=== PATIENT | male | born 1960 | race Caucasian/White ===

== ENCOUNTER 2016-09-19 18:01 | Inpatient (IN) | payer OTHER ==
[2016-09-19 19:09] VITALS: BMI 19.3
[2016-09-19 20:45] LABS: BASOPHIL 0.8 % (0-2.0); EOSINOPHIL 6.6 % (0-4.5); MCHC 31.5 g/dl (32.0-35.9); MEAN CELL VOLUME 95.2 fl (80-96); MEAN PLT VOLUME 8.1 fl (7.5-11.1); NEUTROPHILS 73.9 % (42.8-82.8); PLATELET COUNT 259 K/MM3 (134-434); RDW 14.6 % (11.9-15.9); WHITE BLOOD COUNT 13.9 K/mm3 (4.0-10.0)
--- NOTE | 2016-09-19 20:50 | PDOC ---
History of Present Illness - General History Source: Patient, Exercise Manager Used, Old Records Exam Limitations: No Limitations - History of Present Illness Initial Comments: 09/19/16 21:03 The patient is a 55 year old male, with a significant past medical history of ESRD on dialysis (M, W, F), HIV, anemia, GERD, HLD, paranoid schizophrenia, depression and anxiety, who presents to the emergency department with malfunctioning left upper extremity fistula. The patient was at dialysis today and was not able to receive dialysis due to a clot in the access port of the fistula. The patient's PMD sent the patient in to be admitted in order to repair the malfunctioning fistula. The patient has a history of left upper extremity fistula clotting, with the last case being on 09/30/15. The patient denies chest pain, shortness of breath, headache and dizziness. Denies fever, chills, nausea, vomit, diarrhea and constipation. Denies dysuria, frequency, urgency and hematuria. Allergies: Penicillin, shellfish Past surgical history: Left upper extremity fistula Social history: No alcohol, tobacco or drug use reported Surgeon: Dr. Brooks <Heath Plata - Last Filed: 09/19/16 23:47> - General History Source: Patient Exam Limitations: No Limitations <Gino Houston - Last Filed: 09/20/16 00:05> - General Chief Complaint: Dialysis Shunt Problem Stated Complaint: BACK PAIN Time Seen by Provider: 09/19/16 19:21 Past History <Heath Plata - Last Filed: 09/19/16 23:47> - Past Medical History Anemia: Yes Dialysis: Yes (M-W-F) GI Disorders: Yes (GERD) Hypercholesterolemia: Yes HIV: Yes Psychiatric Problems: Yes (paranoid schizophrenia, psychosis, depression, anxiety) Seizures: Yes (grand mal seizures) - Immunization History Immunization Up to Date: Yes - Psycho/Social/Smoking Cessation Hx Anxiety: No Suicidal Ideation: No Smoking Status: No Smoking History: Never smoked Have you smoked in the past 12 months: No Number of Cigarettes Smoked Daily: 0 Hx Alcohol Use: No Drug/Substance Use Hx: No Substance Use Type: None Hx Substance Use Treatment: No <Gino Houston - Last Filed: 09/20/16 00:05> - Past Medical History Allergies/Adverse Reactions: Allergies Allergy/AdvReac Type Severity Reaction Status Date / Time Penicillins Allergy Unknown Verified 09/19/16 19:09 shellfish derived Allergy Unknown Verified 09/19/16 19:09 Home Medications: Ambulatory Orders Amlodipine Besylate [Norvasc -] 10 mg PO DAILY 09/30/15 Ascorbic Acid [Vitamin C] 250 mg PO DAILY 09/30/15 Calcitriol 0.5 mcg PO DAILY 09/30/15 Cinacalcet HCl [Sensipar] 30 mg PO DAILY 09/30/15 Diazepam 10 mg PO DAILY 09/30/15 Docusate Sodium [Colace -] 200 mg PO HS 09/30/15 Fluoxetine HCl 10 mg PO DAILY 09/30/15 Gabapentin 300 mg PO TID 09/30/15 Iron Polysaccharide Complex [Ferrex 150] 150 mg PO DAILY 09/30/15 Lorazepam [Ativan] 2 mg PO HS 09/30/15 Metoprolol Succinate [Toprol XL -] 50 mg PO DAILY 09/30/15 Nut.tx,Impaired Renal Fxn,Whey [Renalcal] 800 ml PO TID 09/30/15 Quetiapine Fumarate [Seroquel] 100 mg PO DAILY 09/30/15 Sevelamer Carbonate [Renvela -] 1,600 mg PO BID 09/30/15 Aspirin [ASA -] 81 mg PO DAILY #30 tab.chew 10/02/15 Sodium Polystyrene Sulfonate [Kayexalate -] 30 gm PO DAILY #10 bottle 10/02/15 Review of Systems - Review of Systems Able to Perform ROS?: Yes Comments:: 09/19/16 21:04 GENERAL/CONSTITUTIONAL: No fever or chills. No weakness. HEAD, EYES, EARS, NOSE AND THROAT: No change in vision. No ear pain or discharge. No sore throat. CARDIOVASCULAR: No chest pain or shortness of breath RESPIRATORY: No cough, wheezing, or hemoptysis. GASTROINTESTINAL: No nausea, vomiting, diarrhea or constipation. GENITOURINARY: No dysuria, frequency, or change in urination. MUSCULOSKELETAL: No joint or muscle swelling or pain. No neck or back pain. SKIN: No rash NEUROLOGIC: No headache, vertigo, loss of consciousness, or change in strength/ sensation. ENDOCRINE: No increased thirst. No abnormal weight change HEMATOLOGIC/LYMPHATIC: No anemia, easy bleeding, or history of blood clots. ALLERGIC/IMMUNOLOGIC: No hives or skin allergy. <Heath Plata Taryn - Last Filed: 09/19/16 23:47> *Physical Exam - Vital Signs Last Vital Signs Temp Pulse Resp BP Pulse Ox 97.6 F 77 20 132/83 98 09/19/16 19:04 09/19/16 19:04 09/19/16 19:04 09/19/16 19:04 09/19/16 19:04 - Physical Exam Comments: 09/19/16 21:04 GENERAL: Awake, alert, and fully oriented, in no acute distress HEAD: No signs of trauma, normocephalic, atraumatic EYES: PERRLA, EOMI, sclera anicteric, conjunctiva clear ENT: Auricles normal inspection, hearing grossly normal, nares patent, oropharynx clear without exudates. Moist mucosa NECK: Normal ROM, supple, no lymphadenopathy, JVD, or masses LUNGS: No distress, speaks full sentences, clear to auscultation bilaterally HEART: Regular rate and rhythm, normal S1 and S2, no murmurs, rubs or gallops, peripheral pulses normal and equal bilaterally. ABDOMEN: Soft, nontender, normoactive bowel sounds. No guarding, no rebound. No masses EXTREMITIES: +Left upper extremity fistula with mild thrill. Normal inspection, Normal range of motion, no edema. No clubbing or cyanosis. NEUROLOGICAL: Cranial nerves II through XII grossly intact. Normal speech, normal gait, no focal sensorimotor deficits SKIN: Warm, Dry, normal turgor, no rashes or lesions noted. <TamekaAicha harrisaminta Centeno - Last Filed: 09/19/16 23:47> - Vital Signs Last Vital Signs Temp Pulse Resp BP Pulse Ox 97.6 F 77 20 132/83 98 09/19/16 19:04 09/19/16 19:04 09/19/16 19:04 09/19/16 19:04 09/19/16 19:04 <Gino Houston - Last Filed: 09/20/16 00:05> Heart Score/ECG Review #1 ECG reviewed & interpreted by me at: 22:30 09/20/16 00:04 NSR 82, no std/asmita, normal axis, normal intervals, QTC 408 msec. NO peaked t waves Or Widening of the QRS. <Gino Houston - Last Filed: 09/20/16 00:05> ED Treatment Course - LABORATORY CBC & Chemistry Diagram: 09/19/16 20:20 09/19/16 22:35 - ADDITIONAL ORDERS Additional order review: 09/19/16 20:20 RBC 3.95 L MCV 95.2 MCHC 31.5 L RDW 14.6 MPV 8.1 Neutrophils % 73.9 Lymphocytes % 8.3 D Monocytes % 10.4 H Eosinophils % 6.6 H Basophils % 0.8 - RADIOLOGY Radiograph Interpretation: 09/19/16 22:07 Chest X-Ray Reviewed by: Dr. Michael Crook Impression: Cardiomegaly with interval bilateral interstitial opacities. Rule put mild pulmonary venous congestion versus interstitial infiltrates. <Heath Plata - Last Filed: 09/19/16 23:47> - LABORATORY CBC & Chemistry Diagram: 09/19/16 20:20 09/19/16 22:35 - RADIOLOGY Radiology Studies Ordered: Category Date Time Status CHEST X-RAY PORTABLE* [RAD] Stat Radiology 09/19/16 19:53 Taken DUPLEX ART. UPPER LIMITED US [US] Stat Ultrasound 09/20/16 07:00 Ordered DUPLEX HEMODIALYSIS ACCESS [VASC] Stat Vascular 09/19/16 19:53 Ordered <Gino Houston - Last Filed: 09/20/16 00:05> Medical Decision Making - Medical Decision Making 09/19/16 20:49 A portion of this note was documented by scribe services under my direction. I have reviewed the details of the note, within reason, and agree with the documentation with the following case summary and management plan written by me. Patient treated in the ED. Nursing notes are reviewed and incorporated into the medical decision-making. Vital signs reviewed. Peripheral IV access obtained by the nurse, laboratory studies are drawn and sent, reviewed and interpreted by myself. Vital Signs Temp Pulse Resp BP Pulse Ox 97.6 F 77 20 132/83 98 09/19/16 19:04 09/19/16 19:04 09/19/16 19:04 09/19/16 19:04 09/19/16 19:04 55 year old fmale with hx anemia, dialysis (M, W, F), HIV, GERD, HLD, paranoid schizophrenia, depression, anxiety presents to the emergency department for left upper showing fistula workup. I had spoken to Dr. Fe Nunez. The patient was thought to have a clotted LUE fistula. 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 Nunez. Today, the dialysis center (followed by Dr. Courtney Colindres) had attempted to access the site , but was unable to do so. As per Dr. Nunez, states that the surgical PA will be able to see the patient tomorrow for access. Will obtain an ultrasound of the LUE fistula. The patient currently has no complaints at this time. Last dialysis 09/17. Will obtain labs and LUE fistula and admit the patient for further fistula management. 09/20/16 00:03 CBC, BMP 09/19/16 20:20 09/19/16 22:35 CMP Sodium 134 mmol/L (136-145) L 09/19/16 22:35 Potassium 5.4 mmol/L (3.5-5.1) H 09/19/16 22:35 Chloride 100 mmol/L (98-107) 09/19/16 22:35 Carbon Dioxide 23 mmol/L (21-32) 09/19/16 22:35 Anion Gap 11 (8-16) 09/19/16 22:35 BUN 79 mg/dL (7-18) H 09/19/16 22:35 Creatinine 10.3 mg/dL (0.7-1.3) H* 09/19/16 22:35 Creat Clearance w eGFR 5.30 (>60) 09/19/16 22:35 Random Glucose 75 mg/dL (74-106) D 09/19/16 22:35 Calcium 9.6 mg/dL (8.5-10.1) 09/19/16 22:35 Phosphorus 6.1 mg/dL (2.5-4.9) H 09/19/16 22:35 Magnesium 2.5 mg/dL (1.8-2.4) H D 09/19/16 22:35 Total Bilirubin 0.3 mg/dL (0.2-1.0) D 09/19/16 22:35 AST 12 U/L (15-37) L D 09/19/16 22:35 ALT 24 U/L (12-78) 09/19/16 22:35 Alkaline Phosphatase 113 U/L (45-117) 09/19/16 22:35 Total Protein 6.7 g/dl (6.4-8.2) 09/19/16 22:35 Albumin 3.7 g/dl (3.4-5.0) 09/19/16 22:[address] Quintana. She accepts the patient to med/surg admission. Case discussed in detail with admitting physician including history, physical exam and ancillary studies. Admitting physician has assumed care for the patient, will follow all pending diagnostics and will complete the evaluation and treatment. <Gino Houston - Last Filed: 09/20/16 00:05> *DC/Admit/Observation/Transfer - Attestations Scribe Attestion: 09/19/16 21:04 Documentation prepared by Heath Plata, acting as medical receptionist for Gino Houston MD. <Heath Plata - Last Filed: 09/19/16 23:47> - Discharge Dispostion Admit: Yes <Gino Houston - Last Filed: 09/20/16 00:05> Diagnosis at time of Disposition: Malfunction of arteriovenous dialysis fistula Qualifiers: Encounter type: initial encounter Qualified Code(s): T82.590A - Other mechanical complication of surgically created arteriovenous fistula, initial encounter - Discharge Dispostion Condition at time of disposition: Stable
[2016-09-19 21:03] LABS: INR 0.96 (0.82-1.09); PROTHROMBIN TIME (PATIENT) 10.5 SEC (9.98-11.88)
[2016-09-19 21:05] LABS: ACTIVATED PTT 46.4 SECONDS (26.9-34.4)
[2016-09-19 23:16] LABS: ALBUMIN 3.7 g/dl (3.4-5.0); BILIRUBIN,TOTAL 0.3 mg/dL (0.2-1.0); CALCIUM 9.6 mg/dL (8.5-10.1); MAGNESIUM 2.5 mg/dL (1.8-2.4); PHOSPHOROUS 6.1 mg/dL (2.5-4.9); TOT PROT 6.7 g/dl (6.4-8.2)
[2016-09-19 23:38] LABS: CREATININE 10.3 mg/dL (0.7-1.3)
--- NOTE | 2016-09-20 00:31 | HP ---
<Dusty Blanco - Last Filed: 09/20/16 01:42> CHIEF COMPLAINT: Malfunctioning left upper extremity fistula. PCP: Not on staff HISTORY OF PRESENT ILLNESS: The patient is a 55 year old male, with a significant past medical history of ESRD on HD (M, W, F), HIV, anemia, GERD, HLD, paranoid schizophrenia, depression and anxiety who presented to the ED with swelling of the left upper extremity AV fistula. He also reports nasal congestion and dry cough. The patient denies fever, chills, nausea, and diarrhea. ER course was notable for: (1) hyperkalemia 5.4 (2) mild hyponatremia 1.4 (3) mild leukocytosis 13.9 CXR mild congestion Recent Travel: No PAST MEDICAL HISTORY: ESRD on HD (M, W, F), HIV, anemia, GERD, HLD, paranoid schizophrenia, depression and anxiety. PAST SURGICAL HISTORY: AV Fistula Social History: Smoking: No Alcohol: No Drugs: No Family History: Non contributory Allergies Penicillins Allergy (Unknown, Verified 09/19/16 19:09) Shellfish derived Allergy (Unknown, Verified 09/19/16 19:09) HOME MEDICATIONS: Medication Instructions Recorded Amlodipine Besylate [Norvasc -] 10 mg PO DAILY 09/30/15 Ascorbic Acid [Vitamin C] 250 mg PO DAILY 09/30/15 Calcitriol 0.5 mcg PO DAILY 09/30/15 Cinacalcet HCl [Sensipar] 30 mg PO DAILY 09/30/15 Diazepam 10 mg PO DAILY 09/30/15 Docusate Sodium [Colace -] 200 mg PO HS 09/30/15 Fluoxetine HCl 10 mg PO DAILY 09/30/15 Gabapentin 300 mg PO TID 09/30/15 Iron Polysaccharide Complex 150 mg PO DAILY 09/30/15 [Ferrex 150] Lorazepam [Ativan] 2 mg PO HS 09/30/15 Metoprolol Succinate [Toprol XL -] 50 mg PO DAILY 09/30/15 Nut.tx,Impaired Renal Fxn,Whey 800 ml PO TID 09/30/15 [Renalcal] Quetiapine Fumarate [Seroquel] 100 mg PO DAILY 09/30/15 Sevelamer Carbonate [Renvela -] 1,600 mg PO BID 09/30/15 Aspirin [ASA -] 81 mg PO DAILY #30 tab.chew 10/02/15 Sodium Polystyrene Sulfonate 30 gm PO DAILY #10 bottle 10/02/15 [Kayexalate -] REVIEW OF SYSTEMS CONSTITUTIONAL: Absent: fever, chills, diaphoresis, generalized weakness, malaise, loss of appetite, weight change HEENT: Present: Nasal Congestion 'Absent: rhinorrhea, throat pain, throat swelling, difficulty swallowing, mouth swelling, ear pain, eye pain, visual changes CARDIOVASCULAR: Absent: chest pain, syncope, palpitations, irregular heart rate, lightheadedness , peripheral edema RESPIRATORY: Present: Cough Absent: shortness of breath, dyspnea with exertion, orthopnea, wheezing, stridor , hemoptysis GASTROINTESTINAL: Absent: abdominal pain, abdominal distension, nausea, vomiting, diarrhea, constipation, melena, hematochezia GENITOURINARY: Absent: dysuria, frequency, urgency, hesitancy, hematuria, flank pain, genital pain MUSCULOSKELETAL: Absent: myalgia, arthralgia, joint swelling, back pain, neck pain SKIN: Absent: rash, itching, pallor HEMATOLOGIC/IMMUNOLOGIC: Absent: easy bleeding, easy bruising, lymphadenopathy, frequent infections ENDOCRINE: Absent: unexplained weight gain, unexplained weight loss, heat intolerance, cold intolerance NEUROLOGIC: Absent: headache, focal weakness or paresthesias, dizziness, unsteady gait, seizure, mental status changes, bladder or bowel incontinence PSYCHIATRIC: Absent: suicidal or homicidal ideation, hallucinations. PHYSICAL EXAMINATION GENERAL: Well nourished man resting in bed, awake, alert, and fully oriented, in no acute distress. HEAD: Normal with no signs of trauma. EYES: Pupils equal, round and reactive to light, extraocular movements intact, sclera anicteric, conjunctiva clear. No lid lag. EARS, NOSE, THROAT: Ears normal, nares patent, oropharynx clear without exudates. Moist mucous membranes. NECK: Normal range of motion, supple without lymphadenopathy, JVD, or masses. LUNGS: Breath sounds equal, clear to auscultation bilaterally. No wheezes, and no crackles. No accessory muscle use. HEART: Regular rate and rhythm, normal S1 and S2 without murmur, rub or gallop. ABDOMEN: Soft, nontender, not distended, normoactive bowel sounds, no guarding, no rebound, no masses. No hepatomegaly or splenomegaly. MUSCULOSKELETAL: Normal range of motion at all joints. No bony deformities or tenderness. No CVA tenderness. UPPER EXTREMITIES: 2+ pulses, warm, well-perfused. No cyanosis. No clubbing. Cap refill <2 seconds. No peripheral edema. LOWER EXTREMITIES: 2+ pulses, warm, well-perfused. No calf tenderness. No peripheral edema. NEUROLOGICAL: Cranial nerves II-XII intact. Normal speech. Normal gait. PSYCHIATRIC: Cooperative. Good eye contact. Appropriate mood and affect. SKIN: Warm, dry, normal turgor, no rashes or lesions noted. Imaging: CXR Impression: questionable congestion possible infiltrates ASSESSMENT/PLAN: Patient is a 55 year old male with past medical history noted above presents with blocked AV fistula. 1. Clot in Av fistula -To be seen by Dr. Brooks in AM -Type and screen -CBC and Coags in AM -Duplex UE to evaluate fistula 2. ESRD -On HD MWF -Nephrology consult -Miss HD today -Possible HD in am 3. Hyperkalemia -Mild -No ECG changes -To have HD in AM 4. Hyperphosphatemia -Continue with sensipar 5. Schizophrenia -Continue with serafol 6. Hypermagnesemia -Mild 7. Leukocytosis -Most likely reactive -Monitor -Questionable infiltrates on CXR but no respiratory symptoms monitor for now 8. DVT PPX -Low risk -SCDs Admit to med surg Documentation prepared by Dusty Blanco, acting as biomedical engineering professor for Janak Quintana D.O., MD. <Janak Quintana - Last Filed: 09/22/16 19:00> Visit type - Emergency Visit Emergency Visit: Yes ED Registration Date: 09/20/16 Care time: The patient presented to the Emergency Department on the above date and was hospitalized for further evaluation of their emergent condition. - New Patient This patient is new to me today: Yes Date on this admission: 09/22/16 - Critical Care Critical Care patient: No
[2016-09-20] MEDS ORDERED: SODIUM CHLORIDE NASAL SPRAY 44 ML BOTTLE NS PRN (00:55)
[2016-09-20 07:32] LABS: MCH 30.7 pg (25.7-33.7); MCHC 32.5 g/dl (32.0-35.9); MEAN CELL VOLUME 94.5 fl (80-96); MEAN PLT VOLUME 8.1 fl (7.5-11.1); PLATELET COUNT 237 K/MM3 (134-434); RDW 14.8 % (11.9-15.9); WHITE BLOOD COUNT 11.7 K/mm3 (4.0-10.0)
[2016-09-20 07:56] LABS: INR 0.98 (0.82-1.09); PROTHROMBIN TIME (PATIENT) 10.8 SEC (9.98-11.88)
[2016-09-20 08:00] LABS: ACTIVATED PTT 55.7 SECONDS (26.9-34.4)
[2016-09-20 08:28] LABS: CALCIUM 8.8 mg/dL (8.5-10.1); MAGNESIUM 2.6 mg/dL (1.8-2.4); PHOSPHOROUS 7.1 mg/dL (2.5-4.9)
[2016-09-20 10:01] LABS: CREATININE 10.9 mg/dL (0.7-1.3)
[2016-09-20] MEDS: SODIUM POLYSTYRENE SULFONATE 15 GM/60 ML BOTTLE PO SCH ×2 (10:30→10:52)
[2016-09-20] MEDS: amLODIPine BESYLATE 10 MG TABLET (FP) PO SCH (10:45)
[2016-09-20] MEDS: METOPROLOL SUCCINATE 50 MG TAB.SR.24H (FP) PO SCH (10:45)
[2016-09-20] MEDS: SEVELAMER CARBONATE 800 MG TAB (FP) PO SCH ×3 (10:45→17:57)
[2016-09-20] MEDS: ASPIRIN 81 MG CHEWABLE TABLETS PO SCH (10:45)
[2016-09-20] MEDS ORDERED: PT OWN MED DRAWER 7, Y5N ONE (10:48)
[2016-09-20] MEDS: CALCITRIOL 0.25 MCG CAPSULE (FP) PO SCH (10:52)
--- NOTE | 2016-09-20 11:16 | EKG ---
Test Reason : Blood Pressure : / mmHG Vent. Rate : 082 BPM Atrial Rate : 082 BPM P-R Int : 162 ms QRS Dur : 088 ms QT Int : 350 ms P-R-T Axes : 064 054 064 degrees QTc Int : 408 ms NORMAL SINUS RHYTHM NORMAL ECG WHEN COMPARED WITH ECG OF 30-SEP-2015 19:08, NO SIGNIFICANT CHANGE WAS FOUND Confirmed by HOANG TRUJILLO MD ([id number]) on 09/20/2016 11:16:33 AM Referred By: Confirmed By:HOANG TRUJILLO MD
--- NOTE | 2016-09-20 11:36 | CONSULT ---
Consult Consult Specialty:: Nephrology ( Drs. Starks/ Hernan) - History of Present Illness Chief Complaint: PATIENT with ESRD, on HD admitted with malfunctioning AV graft , and a Pseudoaneurysm. He had placement of an external stent. The patient has h/o HIV, Depression, Anxiety, Schizophrenia, and gets his HD at [facility] unit. 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 Cardio/Vascular: Yes: HTN Renal/: Yes: Renal Failure, Hemodialysis Psych: Yes: Depression, Schizophrenia - Past Surgical History Past Surgical History: Yes: AV Fistula/Graft - Alcohol/Substance Use Hx Alcohol Use: No History of Substance Use: reports: None - Smoking History Smoking history: Never smoked Have you smoked in the past 12 months: No Aproximately how many cigarettes per day: 0 - Social History Usual Living Arrangement: Correction History of Recent Travel: (unknown ) Home Medications - Allergies Allergies/Adverse Reactions: Allergies Allergy/AdvReac Type Severity Reaction Status Date / Time Penicillins Allergy Unknown Verified 09/19/16 19:09 shellfish derived Allergy Unknown Verified 09/19/16 19:09 - Home Medications Home Medications: Ambulatory Orders Amlodipine Besylate [Norvasc -] 10 mg PO DAILY 09/30/15 Ascorbic Acid [Vitamin C] 250 mg PO DAILY 09/30/15 Calcitriol 0.5 mcg PO DAILY 09/30/15 Cinacalcet HCl [Sensipar] 30 mg PO DAILY 09/30/15 Diazepam 10 mg PO DAILY 09/30/15 Docusate Sodium [Colace -] 200 mg PO HS 09/30/15 Fluoxetine HCl 10 mg PO DAILY 09/30/15 Gabapentin 300 mg PO TID 09/30/15 Iron Polysaccharide Complex [Ferrex 150] 150 mg PO DAILY 09/30/15 Lorazepam [Ativan] 2 mg PO HS 09/30/15 Metoprolol Succinate [Toprol XL -] 50 mg PO DAILY 09/30/15 Nut.tx,Impaired Renal Fxn,Whey [Renalcal] 800 ml PO TID 09/30/15 Quetiapine Fumarate [Seroquel] 100 mg PO DAILY 09/30/15 Sevelamer Carbonate [Renvela -] 1,600 mg PO BID 09/30/15 Aspirin [ASA -] 81 mg PO DAILY #30 tab.chew 10/02/15 Sodium Polystyrene Sulfonate [Kayexalate -] 30 gm PO DAILY #10 bottle 10/02/15 Physical Exam Vital Signs: Vital Signs Temperature 97.2 F L 09/20/16 10:29 Pulse Rate 69 09/20/16 10:29 Respiratory Rate 18 09/20/16 10:29 Blood Pressure 133/75 09/20/16 10:29 O2 Sat by Pulse Oximetry (%) 98 09/20/16 07:40 Labs: CBC, BMP 09/20/16 06:25 09/20/16 06:25 Assessment/Plan Patient with ESRD admitted with malfunctioning AV Graft. Attended by Dr. Brooks. Will have HD in the dialysis unit today. Orders written and reviewed with the RNN. Thanks again. Courtney Starks MD
--- NOTE | 2016-09-20 11:39 | PN ---
[id number] a significant past medical history of ESRD on HD (M, W, F), HIV, anemia, GERD, HLD, paranoid schizophrenia, depression and anxiety who presented to the ED with swelling of the left upper extremity AV fistula. Patient sent due to inability to use fistula at dialysis center. Dr. Brooks evaluated patient in the ED. Bedside US confirmed adequate flow and patency. Patient to have HD 09/20/16. Message left for HD center by Dr. Brooks to access fistula proximal or distal to clots. Continue care per medicine. No further surgical intervention at this time. Above plan discussed with Dr. Brooks and agrees. <Bernard Pitts - Last Filed: 09/20/16 11:40> - Note Progress Note: As above. Covered stent placed within AV graft to treat pseudoaneurysm of graft. Duplex showed good flow in graft. Access should be obtained in proximal and distal graft segments until aneurysms shrink. <Eddy Brooks - Last Filed: 09/20/16 16:50>
[2016-09-20] MEDS ORDERED: HEPARIN NA (PORCINE) 5,000 UNITS/ML 1ML VIAL IVPUSH ONE (12:00)
[2016-09-20] MEDS: ASCORBIC ACID 250 MG TABLET (FP) PO SCH ×2 (12:44→15:35)
[2016-09-20] MEDS: CINACALCET HCL 30 MG TAB (FP) PO SCH ×2 (12:44→15:35)
[2016-09-20] MEDS: IRON POLYSACCHARIDES 150 MG CAPSULE PO SCH ×2 (12:44→15:35)
[2016-09-20] MEDS: QUEtiapine FUMARATE 100 MG TABLET (FP) PO SCH ×2 (12:44→15:35)
[2016-09-20] MEDS: FLUoxetine HCL 10 MG CAPSULE (FP) PO SCH ×2 (12:44→15:35)
--- NOTE | 2016-09-20 13:41 | PN ---
Teaching Attending Note Name of Resident: Iván Stone ATTENDING PHYSICIAN STATEMENT I saw and evaluated the patient. I reviewed the resident's note and discussed the case with the resident. I agree with the resident's findings and plan as documented. SUBJECTIVE:currently asymptomatic. denies CP, SOB,fever, chills, N/V/C/D OBJECTIVE: Last Vital Signs Temp Pulse Resp BP Pulse Ox 97.2 F L 69 18 133/75 98 09/20/16 10:09/20/16 10:09/20/16 10:09/20/16 10:09/20/16 07:40 General NAD CV S1 S2 RRR no murmur/rub/gallop LUngs CTA B/L No wheezing/rales/rhonchi Extremities LUE palpable thrill ASSESSMENT AND PLAN: 55yo M with multiple comorbidities presented to the ER and was admitted for further management of their acute condition 1. AV fistula malfunction- evaluated by vascular surgery and with u/s seen that there was patency in the fistula and to use proximal to clot. plan for HD today. 2. d/c home after HD
[2016-09-20] MEDS: GABAPENTIN 300 MG CAPSULE (FP) PO SCH ×3 (15:03→21:05)
--- NOTE | 2016-09-20 15:03 | DS ---
Physical Exam: SUBJECTIVE: Patient seen and examined at bedside. He c/o rashes on his back which has been there for long time. Per nurse, no other acute event noted, AV fistula fixed and getting HD today. OBJECTIVE: Vital Signs Period Temp Pulse Resp BP Sys/Donovan Pulse Ox Last 24 Hr 97.2 F-98.1 F 69-81 17-20 125-133/63-75 98-98 PHYSICAL EXAM GENERAL: The patient is awake, alert, oriented to time and person, slightly agitated, not in cardiopulmonary distress LUNGS: CTAB HEART: RRR, S1, S2 without murmur, rub or gallop. ABDOMEN: Soft, nontender, nondistended, normoactive bowel sounds, no guarding, no rebound, no hepatosplenomegaly, no masses. EXTREMITIES: no edema SKIN: scattered rashes on the back LABS Laboratory Results - last 24 hr 09/20/16 09/20/16 09/20/16 06:25 06:25 06:25 WBC 11.7 H RBC 3.79 L Hgb 11.6 L Hct 35.8 MCV 94.5 MCHC 32.5 RDW 14.8 Plt Count 237 MPV 8.1 INR 0.98 PTT (Actin FS) 55.7 H Sodium 134 L Potassium 5.4 H Chloride 101 Carbon Dioxide 19 L Anion Gap 14 BUN 92 H Creatinine 10.9 H* Random Glucose 72 L Calcium 8.8 Phosphorus 7.1 H Magnesium 2.6 H Blood Type Antibody Screen 09/20/16 06:25 WBC RBC Hgb Hct MCV MCHC RDW Plt Count MPV INR PTT (Actin FS) Sodium Potassium Chloride Carbon Dioxide Anion Gap BUN Creatinine Random Glucose Calcium Phosphorus Magnesium Blood Type B POSITIVE Antibody Screen Negative HOSPITAL COURSE: Date of Admission:09/20/16 Patient is a 55 year old male with past medical history of ESRD on HD (M, W, F) , HIV, anemia, GERD, HLD, paranoid schizophrenia, depression and anxiety admitted for blocked AV fistula, which has been evaluated by Dr. Brooks. Patient received HD today on-site without any complication. He's now in stable condition to be discharged. Date of Discharge: 09/20/16 Minutes to complete discharge: 30 Discharge Summary Reason For Visit: DIALYSIS AV FISTULA MALFUNCTION Current Active Problems Dialysis AV fistula malfunction (Acute) Anemia (Chronic) Cognitive and neurobehavioral dysfunction (Chronic) ESRD (end stage renal disease) on dialysis (Chronic) Hypertension (Chronic) Condition: Stable - Instructions Diet, Activity, Other Instructions: Instruction for continuing care: Your AV fistula had a clot and Dr. Brooks fixed it. You received dialysis at [facility] today and now you can go home. Please follow up with your primary care doctor and kidney doctor as instructed by them. Referrals: Roscoe Becerra MD [Staff Physician] - 1 Week Disposition: [facility] - Home Medications Comprehensive Discharge Medication List: Ambulatory Orders Amlodipine Besylate [Norvasc -] 10 mg PO DAILY 09/30/15 Ascorbic Acid [Vitamin C] 250 mg PO DAILY 09/30/15 Calcitriol 0.5 mcg PO DAILY 09/30/15 Cinacalcet HCl [Sensipar] 30 mg PO DAILY 09/30/15 Diazepam 10 mg PO DAILY 09/30/15 Docusate Sodium [Colace -] 200 mg PO HS 09/30/15 Fluoxetine HCl 10 mg PO DAILY 09/30/15 Gabapentin 300 mg PO TID 09/30/15 Iron Polysaccharide Complex [Ferrex 150] 150 mg PO DAILY 09/30/15 Lorazepam [Ativan] 2 mg PO HS 09/30/15 Metoprolol Succinate [Toprol XL -] 50 mg PO DAILY 09/30/15 Nut.tx,Impaired Renal Fxn,Whey [Renalcal] 800 ml PO TID 09/30/15 Quetiapine Fumarate [Seroquel] 100 mg PO DAILY 09/30/15 Sevelamer Carbonate [Renvela -] 1,600 mg PO BID 09/30/15 Aspirin [ASA -] 81 mg PO DAILY #30 tab.chew 10/02/15 Sodium Polystyrene Sulfonate [Kayexalate -] 30 gm PO DAILY #10 bottle 10/02/15 This patient is new to me today: Yes Date on this admission: 09/20/16 Emergency Visit: No Critical Care patient: No - Discharge Referral Referred to [facility] No
--- NOTE | 2016-09-20 18:35 | HOSP ---
Subjective - Review of Symptoms Subjective: Reported AV fistula stopped working. Vascular surgery notified and will evaluate in AM. will make NPO Physical Examination Vital Signs: Vital Signs Temperature 97.4 F L 09/20/16 14:22 Pulse Rate 80 09/20/16 14:22 Respiratory Rate 20 09/20/16 14:22 Blood Pressure 133/75 09/20/16 10:29 O2 Sat by Pulse Oximetry (%) 98 09/20/16 07:40 Labs: CBC, BMP 09/20/16 06:25 09/20/16 06:25
[2016-09-20] MEDS ORDERED: LORazepam 1 MG TABLET PO SCH (22:00)
[2016-09-21] MEDS: GABAPENTIN 300 MG CAPSULE (FP) PO SCH ×2 (06:16→16:50)
[2016-09-21] MEDS: ASPIRIN 81 MG CHEWABLE TABLETS PO SCH (09:09)
[2016-09-21] MEDS: SEVELAMER CARBONATE 800 MG TAB (FP) PO SCH ×2 (09:09→17:51)
--- NOTE | 2016-09-21 10:16 | PN ---
Progress Note (short form) - Note Progress Note: Renal Follow up for ESRD Pt seen and examined at the bedside unable to complete dialysis yesterday because access not able to maintain blood flow Seen by Vascular Sx yesterday Pt w/o complaints Vital Signs Temperature 97.6 F 09/21/16 08:30 Pulse Rate 78 09/21/16 08:30 Respiratory Rate 18 09/21/16 08:30 Blood Pressure 108/61 09/21/16 08:30 O2 Sat by Pulse Oximetry (%) 98 09/20/16 20:22 Intake & Output 09/18/16 09/19/16 09/20/16 09/21/16 23:59 23:59 23:59 23:59 Intake Total 400 Balance 400 Weight 123 lb 2 oz 123 lb 2 oz 118 lb 6 oz Gen: NAD CVS: RRR Lungs: CTA Abd: Soft NT/ND Ext: No edema Access: Left ARM AVG + bruit no thrill felt CBC, BMP 09/20/16 06:25 09/20/16 06:25 Current Medications Amlodipine Besylate (Norvasc -) 10 mg PO DAILY [facility] Last Admin: 09/20/16 10:45 Dose: 10 mg Ascorbic Acid (Vitamin C -) 250 mg PO DAILY [facility] Last Admin: 09/20/16 15:35 Dose: Not Given Aspirin (Asa -) 81 mg PO DAILY [facility] Last Admin: 09/21/16 09:09 Dose: Not Given Calcitriol (Rocaltrol -) 0.5 mcg PO DAILY [facility] Last Admin: 09/20/16 10:52 Dose: 0.5 mcg Cinacalcet (Sensipar -) 30 mg PO DAILY [facility] Last Admin: 09/20/16 15:35 Dose: Not Given Fluoxetine HCl (Prozac -) 10 mg PO DAILY [facility] Last Admin: 09/20/16 15:35 Dose: Not Given Gabapentin (Neurontin -) 300 mg PO TID [facility] Last Admin: 09/21/16 06:16 Dose: Not Given Lorazepam (Ativan -) 2 mg PO HS [facility] Last Admin: 09/20/16 21:05 Dose: 2 mg Metoprolol Succinate (Toprol Xl -) 50 mg PO DAILY [facility] Last Admin: 09/20/16 10:45 Dose: 50 mg Polysaccharide Iron Complex (Niferex-150 -) 150 mg PO DAILY [facility] Last Admin: 09/20/16 15:35 Dose: Not Given Quetiapine Fumarate (Seroquel -) 100 mg PO DAILY [facility] Last Admin: 09/20/16 15:35 Dose: Not Given Sevelamer Carbonate (Renvela -) 1,600 mg PO BIDWM [facility] Last Admin: 09/21/16 09:09 Dose: Not Given Sodium Chloride ([place] Nasal [place] -) 2 spray NS BID PRN PRN Reason: NASAL CONGESTION Sodium Polystyrene Sulfonate (Kayexalate -) 30 gm PO DAILY [facility] Last Admin: 09/20/16 10:30 Dose: Not Given A/P 55 year old Gentleman with PMhx of ESRD on HD, Hypertension, HIV, Schizophrenia who presented with swelling of AVG site #ESRD with AVG dysfunction/pseuodanerysm s/p stenting Can hear bruit in AVG site so graft is functioning Will attempt HD this am, if HD nurse is unable to cannulate will request vascular Sx assistance for doppler or another access intervention Will plan for 3.5 hours of HD today Dose all meds for intermittent HD Thank you Roscoe Becerra DO
[2016-09-21 10:34] LABS: MCH 30.9 pg (25.7-33.7); MCHC 32.6 g/dl (32.0-35.9); MEAN CELL VOLUME 94.7 fl (80-96); MEAN PLT VOLUME 8.4 fl (7.5-11.1); PLATELET COUNT 237 K/MM3 (134-434); RDW 14.8 % (11.9-15.9); WHITE BLOOD COUNT 11.9 K/mm3 (4.0-10.0)
[2016-09-21 11:20] LABS: ALBUMIN 3.8 g/dl (3.4-5.0); BILIRUBIN,TOTAL 0.4 mg/dL (0.2-1.0); CALCIUM 8.7 mg/dL (8.5-10.1); PHOSPHOROUS 7.8 mg/dL (2.5-4.9); TOT PROT 6.5 g/dl (6.4-8.2)
--- NOTE | 2016-09-21 11:23 | PN ---
Physical Exam: SUBJECTIVE: Patient seen and examined at bedside. Difficult to obtain history from patient as he did not answer questions despite asking questions many times. OBJECTIVE: Vital Signs Temperature 97.6 F 09/21/16 08:30 Pulse Rate 78 09/21/16 08:30 Respiratory Rate 18 09/21/16 08:30 Blood Pressure 108/61 09/21/16 08:30 O2 Sat by Pulse Oximetry (%) 98 09/20/16 20:22 GENERAL: The patient is awake, alert, not answering questions appropriately. HEAD: Normal with no signs of trauma. ENT: moist mucous membranes. NECK: Trachea midline, full range of motion LUNGS: Auscultated anteriorly, Breath sounds equal, clear to auscultation bilaterally, no wheezes, no crackles, no accessory muscle use. HEART: Regular rate and rhythm, S1, S2 without murmur, rub or gallop. ABDOMEN: Soft, nontender, nondistended, normoactive bowel sounds, no guarding, no rebound, no hepatosplenomegaly, no masses. EXTREMITIES: 2+ pulses, warm, well-perfused, no edema. NEUROLOGICAL: gait not observed. SKIN: Warm, dry, normal turgor, no rashes or lesions noted -L upper arm AVG no palpable thrill but bruit can be auscultated. Laboratory Results - last 24 hr 09/21/16 09/21/16 06:00 06:00 WBC 11.9 H RBC 3.43 L Hgb 10.6 L Hct 32.5 L MCV 94.7 MCHC 32.6 RDW 14.8 Plt Count 237 MPV 8.4 Sodium 134 L Potassium 6.0 H Chloride 101 Active Medications Generic Name Dose Route Start Last Admin Trade Name Freq PRN Reason Stop Dose Admin Amlodipine Besylate 10 mg 09/20/16 10:00 09/20/16 10:45 Norvasc - PO 10 mg DAILY YOSVANY Administration Ascorbic Acid 250 mg 09/20/16 10:00 09/20/16 15:35 Vitamin C - PO Not Given DAILY YOSVANY Aspirin 81 mg 09/20/16 10:00 09/21/16 09:09 Asa - PO Not Given DAILY YOSVANY Calcitriol 0.5 mcg 09/20/16 10:00 09/20/16 10:52 Rocaltrol - PO 0.5 mcg DAILY YOSVANY Administration Cinacalcet 30 mg 09/20/16 10:00 09/20/16 15:35 Sensipar - PO Not Given DAILY YOSVANY Fluoxetine HCl 10 mg 09/20/16 10:00 09/20/16 15:35 Prozac - PO Not Given DAILY YOSVANY Gabapentin 300 mg 09/20/16 14:00 09/21/16 06:16 Neurontin - PO Not Given TID YOSVANY Lorazepam 2 mg 09/20/16 22:00 09/20/16 21:05 Ativan - PO 2 mg HS YOSVANY Administration Metoprolol Succinate 50 mg 09/20/16 10:00 09/20/16 10:45 Toprol Xl - PO 50 mg DAILY YOSVANY Administration Polysaccharide Iron Complex 150 mg 09/20/16 10:00 09/20/16 15:35 Niferex-150 - PO Not Given DAILY YOSVANY Quetiapine Fumarate 100 mg 09/20/16 10:00 09/20/16 15:35 Seroquel - PO Not Given DAILY YOSVANY Sevelamer Carbonate 1,600 mg 09/20/16 10:00 09/21/16 09:09 Renvela - PO Not Given BIDWM YOSVANY Sodium Chloride 2 spray 09/20/16 00:55 [place] Nasal [place] - NS BID PRN NASAL CONGESTION Sodium Polystyrene Sulfonate 30 gm 09/20/16 10:00 09/20/16 10:30 Kayexalate - PO Not Given DAILY [facility] ASSESSMENT/PLAN: 55 year old male with past medical history of ESRD on HD (MWF), HIV, anemia, GERD, HLD, paranoid schizophrenia, depression and anxiety admitted for blocked AV fistula -ESRD w/ AVG dysfunction -non-palpable thrill but bruit auscultated -As per nephro: will attempt HD today but if HD nurse is unable to cannulate will require vascular surgery assistance -c/w renvela, sensipar - Leukocytosis -WBC trending down -most likely secondary to ESRD -continue to monitor -Schizophrenia -c/w seroquel -HTN -c/w toprol xl 50 mg PO qd -FEN -hyperkalemia: kayexalate 30 g PO qd -continue to monitor electrolytes -currently NPO, in case of surgical intervention for AVG -Dispo: -Awaiting to see whether AVG is usable currently or will need surgical intervention. Problem List - Problems (1) Dialysis AV fistula malfunction Code(s): T82.590A - [facility] COMPL OF SURGICALLY CREATED ARTERIOVENOUS FISTULA, INIT Qualifiers: Encounter type: initial encounter Qualified Code(s): T82.590A - Other mechanical complication of surgically created arteriovenous fistula, initial encounter (2) Anemia Code(s): D64.9 - ANEMIA, UNSPECIFIED Qualifiers: Other causes of anemia: due to chronic kidney disease Qualified Code(s) : N18.9 - Chronic kidney disease, unspecified; D63.1 - Anemia in chronic kidney disease (3) ESRD (end stage renal disease) on dialysis Code(s): N18.6 - END STAGE RENAL DISEASE Z99.2 - DEPENDENCE ON RENAL DIALYSIS (4) Hypertension Code(s): I10 - ESSENTIAL (PRIMARY) HYPERTENSION (5) AV fistula thrombosis Code(s): 453.9 - VENOUS THROMBOSIS NOS (6) Hyperkalemia, diminished renal excretion Code(s): E87.5 - HYPERKALEMIA Visit type - Emergency Visit Emergency Visit: Yes ED Registration Date: 09/20/16 Care time: The patient presented to the Emergency Department on the above date and was hospitalized for further evaluation of their emergent condition. - New Patient This patient is new to me today: Yes Date on this admission: 09/21/16 - Critical Care Critical Care patient: No
[2016-09-21 11:24] LABS: CREATININE 12.3 mg/dL (0.7-1.3)
--- NOTE | 2016-09-21 11:28 | PN ---
Teaching Attending Note Name of Resident: Delbert Do ATTENDING PHYSICIAN STATEMENT I saw and evaluated the patient. I reviewed the resident's note and discussed the case with the resident. I agree with the resident's findings and plan as documented. SUBJECTIVE:currently asymptomatic. denies CP, SOB, fver, chills, N/V/C/D OBJECTIVE: Last Vital Signs Temp Pulse Resp BP Pulse Ox 97.6 F 78 18 108/61 98 09/21/16 08:30 09/21/16 08:30 09/21/16 08:30 09/21/16 08:30 09/20/16 20:22 General NAD CV S1 S2 +murmur Extremities LUE no palpable thrill but +Bruit noted ASSESSMENT AND PLAN: 55yo F with extensive past medical history including ESRD presented to the ER and was admitted for further evaluation of their emergent condition 1. Malfunctioning AV graft- unable to complete HD yesterday. U/s shows flow. + bruit. will re-attempt to cannulate graft today. if unsuccessful will need temporary access for HD. vascular surgery on standby 2. Hyperkalemia- did not complete HD yesterday. plan for repeat HD today.
--- NOTE | 2016-09-21 11:41 | PN ---
Progress Note (short form) - Note Progress Note: Patient seen and examined while in HD w/ Dr. Do. RN having hard time placing HD access needles. Dr. Do placed without difficulty. Pt now on HD. No further vascular surgery intervention. Continue care per primary team. Re-consult PRN
[2016-09-21] MEDS ORDERED: PT OWN MED DRAWER 7, Y5N ONE ×3 (11:55→16:09)
[2016-09-21] MEDS: FLUoxetine HCL 10 MG CAPSULE (FP) PO SCH (12:10)
[2016-09-21 15:50] VITALS: PULSE 85; TEMP 98.1
[2016-09-21] MEDS: SODIUM POLYSTYRENE SULFONATE 15 GM/60 ML BOTTLE PO SCH (16:41)
[2016-09-21] MEDS: amLODIPine BESYLATE 10 MG TABLET (FP) PO SCH (16:45)
[2016-09-21] MEDS: METOPROLOL SUCCINATE 50 MG TAB.SR.24H (FP) PO SCH (16:45)
[2016-09-21] MEDS: IRON POLYSACCHARIDES 150 MG CAPSULE PO SCH (16:46)
[2016-09-21] MEDS: QUEtiapine FUMARATE 100 MG TABLET (FP) PO SCH (16:47)
[2016-09-21] MEDS: CALCITRIOL 0.25 MCG CAPSULE (FP) PO SCH (16:49)
[2016-09-21] MEDS: ASCORBIC ACID 250 MG TABLET (FP) PO SCH (16:50)
[2016-09-21] MEDS ORDERED: PSYLLIUM 5.85 GM PACKET PO ONE (16:50)
[2016-09-21] MEDS: CINACALCET HCL 30 MG TAB (FP) PO SCH (16:50)
[2016-09-21 17:52] VITALS: BP 132/76
[2016-09-22 06:06] LABS: HEP B SURFACE AB Reactive (.)
== END 2016-09-21 18:38 | DRG 314 ==
LOC: JER 18:01 → JERBED 09-20 00:10 → J6S 09-20 10:03
PROVIDERS: ADMIT Internal Medicine; ATTEND Internal Medicine
PROC: 5A1D60Z (ICD-10-PCS; principal; 2016-09-20)
PROC: 3E033GC Introduction of Other Therapeutic Substance into Peripheral Vein, Percutaneous Approach (ICD-10-PCS; 2016-09-20)
DX: T82.590A Other mechanical complication of surgically created arteriovenous fistula, initial encounter (principal); N18.6 End stage renal disease; I12.0 Hypertensive chronic kidney disease with stage 5 chronic kidney disease or end stage renal disease; F20.0 Paranoid schizophrenia; E87.1 Hypo-osmolality and hyponatremia; Y83.2 Surgical operation with anastomosis, bypass or graft as the cause of abnormal reaction of the patient, or of later complication, without mention of misadventure at the time of the procedure; Z99.2 Dependence on renal dialysis; K21.9 Gastro-esophageal reflux disease without esophagitis; D63.1 Anemia in chronic kidney disease; E78.5 Hyperlipidemia, unspecified; E87.5 Hyperkalemia; D72.829 Elevated white blood cell count, unspecified; E83.39 Other disorders of phosphorus metabolism; F32.9 Major depressive disorder, single episode, unspecified; F41.9 Anxiety disorder, unspecified; Z21 Asymptomatic human immunodeficiency virus [HIV] infection status
CPT/HCPCS: 36415; 71010-TC; 80048; 80053; 83735; 84100; 85025; 85027; 85610; 85730; 86704; 86706; 86708; 86803; 86850; 86900; 86901; 87340; 93005; 93010; 93931; 99285-25

== ENCOUNTER 2017-07-26 18:37 | Inpatient (IN) | payer OTHER ==
--- NOTE | 2017-07-26 19:46 | PDOC ---
History of Present Illness - General Chief Complaint: Dialysis Shunt Problem Stated Complaint: DIALYSIS SHUNT CLOGGED Time Seen by Provider: 07/26/17 19:18 History Source: Patient, Shelter Records - History of Present Illness Initial Comments: 07/26/17 19:42 The patient is a 56 year old male, with a significant past medical history of ESRD on dialysis (M, W, F), HIV, anemia, GERD, HLD, paranoid schizophrenia, depression and anxiety, who presents to the emergency department with malfunctioning left upper extremity fistula. The patient was at dialysis today and was not able to receive dialysis due to a clot in the access port of the fistula. The patient's PMD sent the patient in to be admitted in order to repair the malfunctioning fistula. The patient has a history of left upper extremity fistula clotting, with the last case being on September 2016. Last dialysis was on Saturday. The patient is also complaining of upset stomach but denies chest pain, shortness of breath, headache and dizziness. Denies fever, chills, nausea, vomit , diarrhea and constipation. Denies dysuria, frequency, urgency and hematuria. Allergies: Penicillin, shellfish Past surgical history: Left upper extremity fistula Social history: No alcohol, tobacco or drug use reported Surgeon: Dr. Brooks PCP: DR. Bhaskar Lay. PAtient is DNR/DNI/No Feeding Tube 07/26/17 20:00 07/26/17 20:01 Past History - Past Medical History Allergies/Adverse Reactions: Allergies Allergy/AdvReac Type Severity Reaction Status Date / Time Penicillins Allergy Unknown Verified 07/26/17 18:56 shellfish derived Allergy Unknown Verified 07/26/17 18:56 Home Medications: Ambulatory Orders Amlodipine Besylate [Norvasc -] 10 mg PO DAILY 09/30/15 Ascorbic Acid [Vitamin C] 250 mg PO DAILY 09/30/15 Calcitriol 0.5 mcg PO DAILY 09/30/15 Cinacalcet HCl [Sensipar] 30 mg PO DAILY 09/30/15 Diazepam 10 mg PO DAILY 09/30/15 Docusate Sodium [Colace -] 200 mg PO HS 09/30/15 Fluoxetine HCl 10 mg PO DAILY 09/30/15 Gabapentin 300 mg PO TID 09/30/15 Iron Polysaccharide Complex [Ferrex 150] 150 mg PO DAILY 01/22/16 Lorazepam [Ativan] 2 mg PO HS 09/30/15 Metoprolol Succinate [Toprol XL -] 50 mg PO DAILY 09/30/15 Nut.tx,Impaired Renal Fxn,[place]hey [Renalcal] 800 ml PO TID 09/30/15 Quetiapine Fumarate [Seroquel] 100 mg PO DAILY 09/30/15 Sevelamer Carbonate [Renvela -] 1,600 mg PO BID 09/30/15 Aspirin [ASA -] 81 mg PO DAILY #30 tab.chew 10/02/15 Sodium Polystyrene Sulfonate [Kayexalate -] 30 gm PO DAILY #10 bottle 10/02/15 Anemia: Yes Asthma: No Cancer: No Cardiac Disorders: No CVA: No COPD: No CHF: No Dementia: No Diabetes: No Dialysis: Yes (LEFT ARM FISTULA) GI Disorders: Yes (GERD) Disorders: Yes HTN: No Hypercholesterolemia: Yes Liver Disease: No Psychiatric Problems: Yes (paranoid schizophrenia, psychosis, depression, anxiety) Seizures: Yes (grand mal seizures) Thyroid Disease: No - Surgical History Abdominal Surgery: No Appendectomy: No Cardiac Surgery: No Cholecystectomy: No Lung Surgery: No Neurologic Surgery: No Orthopedic Surgery: No - Immunization History Immunization Up to Date: Yes - Suicide/Smoking/Psychosocial Hx Smoking Status: No Smoking History: Never smoked Have you smoked in the past 12 months: No Number of Cigarettes Smoked Daily: 0 Information on smoking cessation initiated: No Hx Alcohol Use: No Drug/Substance Use Hx: No Substance Use Type: None Hx Substance Use Treatment: No Review of Systems - Review of Systems Able to Perform ROS?: Yes Comments:: 07/26/17 19:57 GENERAL/CONSTITUTIONAL: No fever or chills. No weakness. HEAD, EYES, EARS, NOSE AND THROAT: No change in vision. No ear pain or discharge. No sore throat. CARDIOVASCULAR: No chest pain or shortness of breath RESPIRATORY: No cough, wheezing, or hemoptysis. GASTROINTESTINAL: "upset stomach" No nausea, vomiting, diarrhea or constipation. GENITOURINARY: No dysuria, frequency, or change in urination. MUSCULOSKELETAL: No joint or muscle swelling or pain. No neck or back pain. SKIN: No rash NEUROLOGIC: No headache, vertigo, loss of consciousness, or change in strength/ sensation. ENDOCRINE: No increased thirst. No abnormal weight change HEMATOLOGIC/LYMPHATIC: No anemia, easy bleeding, or history of blood clots. ALLERGIC/IMMUNOLOGIC: No hives or skin allergy. *Physical Exam - Vital Signs Last Vital Signs Temp Pulse Resp BP Pulse Ox 97.7 F 80 19 91/54 99 07/26/17 18:54 07/26/17 18:54 07/26/17 18:54 07/26/17 18:54 07/26/17 18:54 - Physical Exam Comments: 07/26/17 19:58 GENERAL: Awake, alert, and fully oriented, in no acute distress HEAD: No signs of trauma, normocephalic, atraumatic EYES: PERRLA, EOMI, sclera anicteric, conjunctiva clear NECK: Normal ROM, supple, no lymphadenopathy, JVD, or masses LUNGS: No distress, however noisy, congested sinuses, speaks full sentences, clear to auscultation bilaterally HEART: Regular rate and rhythm, normal S1 and S2, no murmurs, rubs or gallops, peripheral pulses normal and equal bilaterally. ABDOMEN: Soft, nontender, normoactive bowel sounds. No guarding, no rebound. No masses EXTREMITIES: +Left upper extremity fistula with mild thrill. Normal inspection, Normal range of motion, no edema. No clubbing or cyanosis. NEUROLOGICAL: Cranial nerves II through XII grossly intact. Normal speech, normal gait, no focal sensorimotor deficits SKIN: Warm, Dry, normal turgor, no rashes or lesions noted. ED Treatment Course - LABORATORY CBC & Chemistry Diagram: 07/26/17 20:12 07/26/17 20:12 Medical Decision Making - Medical Decision Making 07/26/17 20:02 56M with pmh of HIV and ESRD present to the ED sent from Dialysis center for clogged fistula. Labs, CXR, EKG pending. Ordered Duplex ultrasound of Upper Left Extremity. Paged Dr. Brooksm surgeon. 07/26/17 21:[address] Brooks who cannot see the patient himself this weekend but reached out to Dr. Do who will see the patient tomorrow. 07/26/17 22:00 EKG: Normal sinus rhythm/normal EKG 07/26/17 23:47 Ultrasound report: 100% obstructed fistula Patient admitted to med/surg 07/26/17 23:48 *DC/Admit/Observation/Transfer Diagnosis at time of Disposition: Dialysis AV fistula malfunction - Discharge Dispostion Admit: Yes - Referrals - Patient Instructions - Post Discharge Activity
--- NOTE | 2017-07-26 19:56 | PDOC ---
Attending Attestation - Resident Resident Name: Jefferson Marroquin - HPI HPI: 07/26/17 19:54 Pt was sent from dialysis center for a cotted AV graft. Pt had a similar presentation last year. - Physicial Exam PE: 07/26/17 19:55 Agree with resident exam. - Medical Decision Making 07/26/17 19:55 Pt will have labs and he will be admitted for surgical eval;interventional repair of AV graft. Pt lives at [facility] and he has been admitted to the hospitalist inthe past. 07/26/17 22:59 Patient Name: FITZ CERVANTES THIS IS A PRELIMINARY REPORT FROM [facility] DATE OF SERVICE: 2017-07-26 21:41:40 IMAGES: 16 EXAM: Ultrasound left upper extremity limited to arteriovenous fistula HISTORY: Evaluate for thrombus COMPARISON: None. FINDINGS: The left arteriovenous fistula is completely occluded. No flow is identified. THIS DOCUMENT HAS BEEN ELECTRONICALLY SIGNED
[2017-07-26] MEDS ORDERED: PANTOPRAZOLE SODIUM 40 MG VIAL IVPUSH ONE (20:06)
[2017-07-26] MEDS ORDERED: PANTOPRAZOLE SODIUM 40 MG/100 ML BAG IVPB ONE (20:25)
[2017-07-26 20:28] LABS: BASOPHIL 0.8 % (0-2.0); EOSINOPHIL 1.9 % (0-4.5); MCH 31.8 pg (25.7-33.7); MCHC 32.8 g/dl (32.0-35.9); MEAN PLT VOLUME 8.4 fl (7.5-11.1); NEUTROPHILS 76.8 % (42.8-82.8); PLATELET COUNT 272 K/MM3 (134-434); RDW 16.1 % (11.9-15.9); WHITE BLOOD COUNT 12.4 K/mm3 (4.0-10.0)
[2017-07-26 20:53] LABS: ALBUMIN 3.3 g/dl (3.4-5.0); ANION GAP 14 (8-16); CALCIUM 8.1 mg/dL (8.5-10.1); CO2 23 mmol/L (21-32); GLUCOSE,RANDOM 132 mg/dL (74-106)
[2017-07-26 21:02] LABS: ALK PHOS 133 U/L (45-117); BILIRUBIN,TOTAL 0.4 mg/dL (0.2-1.0); SGOT/AST 10 U/L (15-37); SGPT/ALT 22 U/L (12-78); TOT PROT 6.1 g/dl (6.4-8.2)
[2017-07-26 21:35] LABS: CREATININE 10.9 mg/dL (0.7-1.3)
[2017-07-26] MEDS ORDERED: DEXTROSE 5%-0.45% SALINE 1,000 ML IV SCH (22:30)
--- NOTE | 2017-07-26 23:38 | HP ---
CHIEF COMPLAINT: clotted fistula PCP: HISTORY OF PRESENT ILLNESS: Patient is a 56 year old male with a past medical history of ESRD (HD MWF), HIV , anemia, GERD, paranoid schizophrenia, depression and anxiety presents to the hospital for clotted AV graft. He states that he went to dialysis today and they were unable to do the dialysis due to finding his L arm AV graft clotted. Patient states that his L arm has some slight pain distally on the anterior surface if the graft, and patient denies any numbness or tingling, fevers or chills. He states that he had a successful dialysis session on Saturday and had no issues until today. Patient previously was admitted for a clotted AV graft in September 2016, seen by Dr. Brooks. ER course was notable for: (1) Leukocytosis (2) BUN/Cre 105/10.9 (3) US showing no flow through graft Recent Travel: PAST MEDICAL HISTORY: ESRD, HIV, Anemia, GERD, paranoid schizophrenia, depression, anxiety PAST SURGICAL HISTORY: L arm AV graft Social History: Smoking: none Alcohol: YES, unclear Drugs: no Family History: Allergies Penicillins Allergy (Unknown, Verified 07/26/17 18:56) shellfish derived Allergy (Unknown, Verified 07/26/17 18:56) HOME MEDICATIONS: Home Medications Medication Instructions Recorded Amlodipine Besylate [Norvasc -] 10 mg PO DAILY 09/30/15 Ascorbic Acid [Vitamin C] 250 mg PO DAILY 09/30/15 Calcitriol 0.5 mcg PO DAILY 09/30/15 Cinacalcet HCl [Sensipar] 30 mg PO DAILY 09/30/15 Diazepam 10 mg PO DAILY 09/30/15 Docusate Sodium [Colace -] 200 mg PO HS 09/30/15 Fluoxetine HCl 10 mg PO DAILY 09/30/15 Gabapentin 300 mg PO TID 09/30/15 Iron Polysaccharide Complex 150 mg PO DAILY 09/30/15 [Ferrex 150] Lorazepam [Ativan] 2 mg PO HS 09/30/15 Metoprolol Succinate [Toprol XL -] 50 mg PO DAILY 09/30/15 Nut.tx,Impaired Renal Fxn,Whey 800 ml PO TID 09/30/15 [Renalcal] Quetiapine Fumarate [Seroquel] 100 mg PO DAILY 09/30/15 Sevelamer Carbonate [Renvela -] 1,600 mg PO BID 09/30/15 Aspirin [ASA -] 81 mg PO DAILY #30 tab.chew 10/02/15 Sodium Polystyrene Sulfonate 30 gm PO DAILY #10 bottle 10/02/15 [Kayexalate -] REVIEW OF SYSTEMS CONSTITUTIONAL: Absent: fever, chills, diaphoresis, generalized weakness, malaise, loss of appetite, weight change HEENT: nasal congestion Absent: rhinorrhea, throat pain, throat swelling, difficulty swallowing, mouth swelling, ear pain, eye pain, visual changes CARDIOVASCULAR: Absent: chest pain, syncope, palpitations, irregular heart rate, lightheadedness , peripheral edema RESPIRATORY: Absent: cough, shortness of breath, dyspnea with exertion, orthopnea, wheezing, stridor, hemoptysis GASTROINTESTINAL: Absent: abdominal pain, abdominal distension, nausea, vomiting, diarrhea, constipation, melena, hematochezia GENITOURINARY: Absent: dysuria, frequency, urgency, hesitancy, hematuria, flank pain, genital pain MUSCULOSKELETAL: Absent: myalgia, arthralgia, joint swelling, back pain, neck pain SKIN: Absent: rash, itching, pallor HEMATOLOGIC/IMMUNOLOGIC: Absent: easy bleeding, easy bruising, lymphadenopathy, frequent infections ENDOCRINE: Absent: unexplained weight gain, unexplained weight loss, heat intolerance, cold intolerance NEUROLOGIC: Absent: headache, focal weakness or paresthesias, dizziness, unsteady gait, seizure, mental status changes, bladder or bowel incontinence PSYCHIATRIC: Absent: anxiety, depression, suicidal or homicidal ideation, hallucinations. PHYSICAL EXAMINATION Vital Signs - 24 hr 07/26/17 18:54 Temperature 97.7 F Pulse Rate 80 Respiratory 19 Rate Blood Pressure 91/54 O2 Sat by Pulse 99 Oximetry (%) GENERAL: Awake, alert, and fully oriented, in no acute distress. HEAD: Normal with no signs of trauma. EYES: Pupils equal, round and reactive to light, extraocular movements intact, sclera anicteric, conjunctiva clear. Lid lag on the R. Possible Exophthalmos. EARS, NOSE, THROAT: Ears normal, nares patent, oropharynx clear without exudates. Moist mucous membranes. NECK: Normal range of motion, supple without lymphadenopathy, JVD, or masses. LUNGS: Breath sounds equal, clear to auscultation bilaterally. No wheezes, and no crackles. No accessory muscle use. HEART: Regular rate and rhythm, normal S1 and S2 without murmur, rub or gallop. ABDOMEN: Soft, nontender, not distended, normoactive bowel sounds, no guarding, no rebound, no masses. No hepatomegaly or splenomegaly. MUSCULOSKELETAL: Normal range of motion at all joints. No bony deformities or tenderness. No CVA tenderness. UPPER EXTREMITIES: 2+ pulses, warm, well-perfused. No cyanosis. No clubbing. No peripheral edema. Scar from L arm AV graft visible. Flow not auscultated. LOWER EXTREMITIES: 2+ pulses, warm, well-perfused. No calf tenderness. No peripheral edema. NEUROLOGICAL: Cranial nerves II-XII intact. Normal speech. Normal gait. PSYCHIATRIC: Cooperative. Good eye contact. Appropriate mood and affect. SKIN: Warm, dry, normal turgor, no rashes or lesions noted, normal capillary refill. Laboratory Results - last 24 hr 07/26/17 07/26/17 20:12 20:12 WBC 12.4 H RBC 3.55 L Hgb 11.3 L Hct 34.4 L MCV 97.0 H MCH 31.8 MCHC 32.8 RDW 16.1 H Plt Count 272 MPV 8.4 Neutrophils % 76.8 Lymphocytes % 9.6 Monocytes % 10.9 H Eosinophils % 1.9 Basophils % 0.8 Sodium 132 L Potassium 5.0 Chloride 95 L Carbon Dioxide 23 D Anion Gap 14 BUN 105 H* Creatinine 10.9 H* Creat Clearance w eGFR 4.95 Random Glucose 132 H D Calcium 8.1 L Total Bilirubin 0.4 AST 10 L D ALT 22 Alkaline Phosphatase 133 H D Total Protein 6.1 L Albumin 3.3 L ASSESSMENT/PLAN: 56 year old male with a past medical history of ESRD (HD MWF), HIV, anemia, GERD , paranoid schizophrenia, depression and anxiety admitted to the hospital for clotted L arm AV graft. #AVG occlusion: likely 2/2 clot -vascular consulted in AM -type and screen -CBC and coags in the AM -duplex US states L AV graft completley occluded and no flow identified #ESRD: HD MWF -nephrology consult -missed HD #Hypertension - controlled -continue metoprolol 50mg #Anemia - likely 2/2 ESRD -transfuse if Hgb <7 -Type and screen #Hyperphosphatemia: -continue sensipar, check PO4 levels in Am #Schizophrenia: patient states he is not on quetiapine anymore and that he is on haloperidol -confirm in AM -give haloperidol 5mg FEN -D5 0.5NS @50cc/hr -do not replete electrolytes, check in AM, possible dialysis -NPO Prophylaxis: -SCDs Disposition -Admit to med-surg -full code Visit type - Emergency Visit Emergency Visit: Yes Care time: The patient presented to the Emergency Department on the above date and was hospitalized for further evaluation of their emergent condition. - New Patient This patient is new to me today: Yes Date on this admission: 07/27/17 - Critical Care Critical Care patient: No
--- NOTE | 2017-07-27 00:53 | PN ---
Teaching Attending Note Name of Resident: Tye Richard ATTENDING PHYSICIAN STATEMENT I saw and evaluated the patient. I reviewed the resident's note and discussed the case with the resident. I agree with the resident's findings and plan as documented. SUBJECTIVE: 56 y/o M presented to ED for clotted left AV graft, with some pain to area. PMH of ESRD on HD ( M,W, F), HIV, anemia, GERD, paranoid schizophrenia , depression and anxiety. Prior episode of AV graft clotting in 2016. OBJECTIVE: Gen: Flat Affect HEENT: Microcephalic, shortened and wide neck, down syndrome like appearance CVS: RRR, S1,S2 Lungs: CTA Abd: Soft, BS+, NT, ND Ext: Nl rom, left arm AV with palpable thrill. CBCD WBC 12.4 K/mm3 (4.0-10.0) H 07/26/17 20:12 RBC 3.55 M/mm3 (4.00-5.60) L 07/26/17 20:12 Hgb 11.3 GM/dL (11.7-16.9) L 07/26/17 20:12 Hct 34.4 % (35.4-49) L 07/26/17 20:12 MCV 97.0 fl (80-96) H 07/26/17 20:12 MCHC 32.8 g/dl (32.0-35.9) 07/26/17 20:12 RDW 16.1 % (11.9-15.9) H 07/26/17 20:12 Plt Count 272 K/MM3 (134-434) 07/26/17 20:12 MPV 8.4 fl (7.5-11.1) 07/26/17 20:12 CMP Sodium 132 mmol/L (136-145) L 07/26/17 20:12 Potassium 5.0 mmol/L (3.5-5.1) 07/26/17 20:12 Chloride 95 mmol/L (98-107) L 07/26/17 20:12 Carbon Dioxide 23 mmol/L (21-32) D 07/26/17 20:12 Anion Gap 14 (8-16) 07/26/17 20:12 BUN 105 mg/dL (7-18) H* 07/26/17 20:12 Creatinine 10.9 mg/dL (0.7-1.3) H* 07/26/17 20:12 Creat Clearance w eGFR 4.95 (>60) 07/26/17 20:12 Random Glucose 132 mg/dL (74-106) H D 07/26/17 20:12 Calcium 8.1 mg/dL (8.5-10.1) L 07/26/17 20:12 Total Bilirubin 0.4 mg/dL (0.2-1.0) 07/26/17 20:12 AST 10 U/L (15-37) L D 07/26/17 20:12 ALT 22 U/L (12-78) 07/26/17 20:12 Alkaline Phosphatase 133 U/L (45-117) H D 07/26/17 20:12 Total Protein 6.1 g/dl (6.4-8.2) L 07/26/17 20:12 Albumin 3.3 g/dl (3.4-5.0) L 07/26/17 20:12 ASSESSMENT AND PLAN: CLotted AV graft, Vascular surgery consult for surgery in AM. Upper extremity doppler NPO Nephrology consult for HD Continue home medications. DVT prophylaxis.
[2017-07-27] MEDS ORDERED: LORazepam 2 MG/ML SDV VIAL IVPUSH ONE (01:40)
[2017-07-27] MEDS ORDERED: ALPRAZolam 0.25 MG TABLET PO ONE (01:59)
[2017-07-27] MEDS: GABAPENTIN 300 MG CAPSULE (FP) PO SCH ×4 (02:27→22:43)
[2017-07-27 03:16] VITALS: BMI 20.1
[2017-07-27 06:56] LABS: MCH 30.9 pg (25.7-33.7); MCHC 31.8 g/dl (32.0-35.9); MEAN CELL VOLUME 97.3 fl (80-96); MEAN PLT VOLUME 7.7 fl (7.5-11.1); PLATELET COUNT 254 K/MM3 (134-434); RDW 15.8 % (11.9-15.9)
[2017-07-27 07:21] LABS: INR 0.95 (0.82-1.09); PROTHROMBIN TIME (PATIENT) 10.7 SEC (9.98-11.88)
[2017-07-27 07:24] LABS: ACTIVATED PTT 43.7 SECONDS (26.9-34.4)
[2017-07-27] MEDS: SEVELAMER CARBONATE 800 MG TAB (FP) PO SCH ×2 (08:36→17:53)
[2017-07-27 09:16] LABS: ALBUMIN 3.6 g/dl (3.4-5.0); ANION GAP 18 (8-16); BILIRUBIN,TOTAL 0.3 mg/dL (0.2-1.0); CALCIUM 8.4 mg/dL (8.5-10.1); CO2 20 mmol/L (21-32); GLUCOSE,RANDOM 76 mg/dL (74-106); MAGNESIUM 2.9 mg/dL (1.8-2.4); SGOT/AST 8 U/L (15-37); SGPT/ALT 19 U/L (12-78); TOT PROT 6.4 g/dl (6.4-8.2)
--- NOTE | 2017-07-27 09:20 | CON.NEP ---
Consult Consult Specialty:: Nephrology Referred by:: Dr. Do Reason for Consultation:: ESRD on HD with clotted AVG - History of Present Illness Chief Complaint: Clotted AVG History of Present Illness: This is a 56 year old gentleman with PMhx of ESRD on HD (MWF at [facility]), HIV, Schizophrenia, Anxiety, Depression sent from HD unit with clotted AVG. Pt had a uncomplicated dialysis last Saturday per the HD unit staff. Pt is awake and alet and has no acute complaints. Denies any SOB, chest pain, cough, N/V, Metallic taste in the mouth, Confusion, lethargy, weakness. - History Source History Provided By: Patient, Medical Record Limitations to Obtaining History: No Limitations - Past Medical History BRICK CATCHER: Yes: Seizure Cardio/Vascular: Yes: HTN Renal/: Yes: Renal Failure, Hemodialysis Psych: Yes: Depression, Schizophrenia - Past Surgical History Past Surgical History: Yes: AV Fistula/Graft - Alcohol/Substance Use Hx Alcohol Use: No History of Substance Use: reports: None - Smoking History Smoking history: Never smoked Have you smoked in the past 12 months: No Aproximately how many cigarettes per day: 0 - Social History Usual Living Arrangement: [facility] History of Recent Travel: (unknown ) Home Medications - Allergies Allergies/Adverse Reactions: Allergies Allergy/AdvReac Type Severity Reaction Status Date / Time Penicillins Allergy Unknown Verified 07/26/17 18:56 shellfish derived Allergy Unknown Verified 07/26/17 18:56 - Home Medications Home Medications: Ambulatory Orders Amlodipine Besylate [Norvasc -] 10 mg PO DAILY 09/30/15 Ascorbic Acid [Vitamin C] 250 mg PO DAILY 09/30/15 Calcitriol 0.5 mcg PO DAILY 09/30/15 Cinacalcet HCl [Sensipar] 30 mg PO DAILY 09/30/15 Diazepam 10 mg PO DAILY 09/30/15 Docusate Sodium [Colace -] 200 mg PO HS 09/30/15 Fluoxetine HCl 10 mg PO DAILY 09/30/15 Gabapentin 300 mg PO TID 09/30/15 Iron Polysaccharide Complex [Ferrex 150] 150 mg PO DAILY 09/30/15 Lorazepam [Ativan] 2 mg PO HS 09/30/15 Metoprolol Succinate [Toprol XL -] 50 mg PO DAILY 09/30/15 Nut.tx,Impaired Renal Fxn,Whey [Renalcal] 800 ml PO TID 09/30/15 Quetiapine Fumarate [Seroquel] 100 mg PO DAILY 09/30/15 Sevelamer Carbonate [Renvela -] 1,600 mg PO BID 09/30/15 Aspirin [ASA -] 81 mg PO DAILY #30 tab.chew 10/02/15 Sodium Polystyrene Sulfonate [Kayexalate -] 30 gm PO DAILY #10 bottle 10/02/15 Family Disease History - Family Disease History Family History: Unremarkable Review of Systems - Review of Systems Constitutional: denies: Chills, Fever, Lethargy, Loss of Appetite, Weakness Eyes: reports: No Symptoms HENT: reports: No Symptoms Neck: reports: No Symptoms Cardiovascular: denies: Chest Pain, Edema, Palpitations, Shortness of Breath Respiratory: denies: Cough, Hemoptysis, Orthopnea, PND, SOB, SOB on Exertion Gastrointestinal: denies: Abdominal Pain, Constipation, Diarrhea, Nausea, Vomiting Genitourinary: denies: Flank Pain Musculoskeletal: reports: No Symptoms Neurological: reports: No Symptoms Nephrology Consult - Height Height: 5 ft 7 in - Weight Weight: 58.315 kg - BMI Body Mass Index (BMI): 20.1 - Lab Results CBC,BMP: CBC, BMP 07/27/17 06:00 Anion Gap: Anion Gap Anion Gap 14 (8-16) 07/26/17 20:12 - Imaging Chest X-ray: Report Reviewed - Physical Examination Vital Signs: Vital Signs Temperature 97.1 F L 07/27/17 04:00 Pulse Rate 70 07/27/17 04:00 Respiratory Rate 18 07/27/17 04:00 Blood Pressure 108/66 07/27/17 04:00 O2 Sat by Pulse Oximetry (%) 96 07/27/17 02:00 Constitutional: Yes: Well Nourished, No Distress, Calm Eyes: Yes: Conjunctiva Clear HENT: Yes: Atraumatic, Normocephalic Neck: Yes: Supple Cardiovascular: Yes: Regular Rate and Rhythm. No: JVD, Murmur, Rub Respiratory: Yes: Regular, CTA Bilaterally Gastrointestinal: Yes: Normal Bowel Sounds, Soft Renal/: No: Anuria, Bladder Distention, CVA Tenderness - Left, CVA Tenderness - Right, Manzo Present Edema: No Neurological: Yes: Alert, Oriented Problem List - Problems (1) ESRD (end stage renal disease) Code(s): N18.6 - END STAGE RENAL DISEASE (2) ESRD (end stage renal disease) on dialysis Code(s): N18.6 - END STAGE RENAL DISEASE; Z99.2 - DEPENDENCE ON RENAL DIALYSIS (3) Dialysis AV fistula malfunction Code(s): T82.590A - [facility] COMPL OF SURGICALLY CREATED ARTERIOVENOUS FISTULA, INIT (4) Clotted renal dialysis AV graft Code(s): T82.868A - THROMBOSIS DUE TO VASCULAR PROSTH DEV/GRFT, INIT Assessment/Plan 56 year old gentleman with PMhx of ESRD on HD (MWF at [facility]), HIV, Schizophrenia, Anxiety, Depression sent from HD unit with clotted AVG. #Clotted AVG Vascular surgery aware and will follow #ESRD on HD with missed dialysis yesterday BUN is ~100 but no overt uremic symtpoms noted (no N/V, metallic taste, weakness , asterxis) todays am labs pending, will follow if any overt acidosis, hyperkalemia will warrnet more urgent managent of clotted AVG Renal diet 1.2 L fluid restriction d/c IVF if pt is able to eat #HIV continue anti-virals #Hypertension continue metoprolol, amlodipine #Metabolic acidosis secondary to renal failure give sodium bicarbonate 650mg PO x 2 today #CKD related Anemia Hgb at goal Thank you Roscoe Becerra DO
[2017-07-27 09:21] LABS: ALK PHOS 102 U/L (45-117)
[2017-07-27 09:33] LABS: CREATININE 11.5 mg/dL (0.7-1.3)
[2017-07-27] MEDS ORDERED: ASPIRIN 81 MG CHEWABLE TABLETS PO SCH (10:00)
[2017-07-27] MEDS ORDERED: FLUoxetine HCL 10 MG CAPSULE (FP) PO SCH (10:00)
[2017-07-27] MEDS ORDERED: amLODIPine BESYLATE 10 MG TABLET (FP) PO SCH (10:00)
[2017-07-27] MEDS ORDERED: diazePAM 5 MG TABLET PO SCH (10:00)
[2017-07-27] MEDS ORDERED: METOPROLOL SUCCINATE 50 MG TAB.SR.24H (FP) PO SCH (10:00)
[2017-07-27 10:05] LABS: PHOSPHOROUS 9.6 mg/dL (2.5-4.9)
[2017-07-27] MEDS ORDERED: PT OWN MED DRAWER 7, Y5N ONE ×2 (10:52→12:12)
[2017-07-27] MEDS: SODIUM BICARBONATE 650 MG TABLET PO SCH ×3 (11:02→22:43)
[2017-07-27] MEDS: CINACALCET HCL 30 MG TAB (FP) PO SCH ×2 (11:02→12:08)
[2017-07-27] MEDS: TRIAMCINOLONE ACET 0.1% OINT 15 GM TUBE TP SCH ×2 (12:03→22:42)
[2017-07-27] MEDS: FLUTICASONE PROP 0.05% 16 GM NASAL SPRAY NS SCH ×2 (12:03→22:42)
--- NOTE | 2017-07-27 12:39 | PN ---
Progress Note (short form) - Note Progress Note: c/o diffuse pruritis. has pain and swelling at fistula site. denies CP, SOB< fever, chills, N/V/C/D. states there was no difficulty cannulizing AV fistula on Saturday and tolerated full HD session Current Medications Generic Name Dose Route Start Last Admin Trade Name Amna PRN Reason Stop Dose Admin Amlodipine Besylate 10 mg 07/27/17 10:00 07/27/17 11:02 Norvasc - PO Not Given DAILY YOSVANY Aspirin 81 mg 07/27/17 10:00 07/27/17 12:12 Asa - PO Not Given DAILY YOSVANY Cinacalcet 30 mg 07/27/17 10:00 07/27/17 12:08 Sensipar - PO 30 mg DAILY YOSVANY Administration Diazepam 10 mg 07/27/17 10:00 07/27/17 11:02 Valium - PO Not Given DAILY YOSVANY Docusate Sodium 200 mg 07/27/17 22:00 Colace - PO HS [facility] Fluoxetine HCl 10 mg 07/27/17 10:00 07/27/17 11:02 Prozac - PO Not Given DAILY YOSVANY Fluticasone Propionate 1 spray 07/27/17 10:00 07/27/17 12:03 Flonase - NS 2 inh BID YSOVANY Administration Gabapentin 300 mg 07/26/17 23:45 07/27/17 06:34 Neurontin - PO 300 mg TID YOSVANY Administration Heparin Sodium (Porcine) 1,000 unit 07/28/17 06:00 Heparin - IVPUSH 07/28/17 06:01 ONCE ONE Dextrose/Sodium Chloride 1,000 mls @ 75 mls/hr 07/26/17 22:30 07/27/17 02:26 D5-1/2ns - IV 75 mls/hr ASDIR YOSVANY Administration Metoprolol Succinate 50 mg 07/27/17 10:00 07/27/17 11:02 Toprol Xl - PO Not Given DAILY YOSVANY Sevelamer Carbonate 1,600 mg 07/27/17 08:00 07/27/17 08:36 Renvela - PO Not Given BIDWM YOSVANY Sodium Bicarbonate 650 mg 07/27/17 10:15 07/27/17 12:07 Sodium Bicarbonate - PO 07/27/17 22:01 650 mg BID YOSVANY Administration Triamcinolone Acetonide 1 applic 07/27/17 10:00 07/27/17 12:03 Aristocort 0.1% Ointment - TP 1 applic BID YOSVANY Administration Last Vital Signs Temp Pulse Resp BP Pulse Ox 97.6 F 65 20 103/66 96 07/27/17 10:58 07/27/17 11:38 07/27/17 11:38 07/27/17 11:38 07/27/17 02:00 General NAD CV S1 S2 RRR +murmur Lungs CTA B/L no wheezing/rales/rhonchi Abdomen soft NT/ND no wheezig/rales/rhonchi Extremities LUE fistula with no palable thrill, no bruit CBCD WBC 12.0 K/mm3 (4.0-10.0) H 07/27/17 06:00 RBC 3.61 M/mm3 (4.00-5.60) L 07/27/17 06:00 Hgb 11.2 GM/dL (11.7-16.9) L 07/27/17 06:00 Hct 35.2 % (35.4-49) L 07/27/17 06:00 MCV 97.3 fl (80-96) H 07/27/17 06:00 MCHC 31.8 g/dl (32.0-35.9) L 07/27/17 06:00 RDW 15.8 % (11.9-15.9) 07/27/17 06:00 Plt Count 254 K/MM3 (134-434) 07/27/17 06:00 MPV 7.7 fl (7.5-11.1) 07/27/17 06:00 CMP Sodium 134 mmol/L (136-145) L 07/27/17 06:00 Potassium 5.1 mmol/L (3.5-5.1) 07/27/17 06:00 Chloride 96 mmol/L (98-107) L 07/27/17 06:00 Carbon Dioxide 20 mmol/L (21-32) L 07/27/17 06:00 Anion Gap 18 (8-16) H 07/27/17 06:00 BUN 114 mg/dL (7-18) H* 07/27/17 06:00 Creatinine 11.5 mg/dL (0.7-1.3) H* 07/27/17 06:00 Creat Clearance w eGFR 4.47 (>60) 07/27/17 06:00 Calcium 8.4 mg/dL (8.5-10.1) L 07/27/17 06:00 Total Bilirubin 0.3 mg/dL (0.2-1.0) D 07/27/17 06:00 AST 8 U/L (15-37) L 07/27/17 06:00 ALT 19 U/L (12-78) 07/27/17 06:00 Alkaline Phosphatase 102 U/L (45-117) D 07/27/17 06:00 Total Protein 6.4 g/dl (6.4-8.2) 07/27/17 06:00 Albumin 3.6 g/dl (3.4-5.0) 07/27/17 06:00 A/P 56yo M with PMH ESRD on HD, HIV, anemia, schizoaffective disorder with paranoia presented to the ER with clotted AV fistula 1. Clotted AV fistula- evaluated under u/s and is 100% clotted. NPO tonight for re-cannulization tomorrow. vascular surgery on board. will hold asa 2. Hypotension- asymptomatic. will be cautious giving fluids as he has no access for HD. will hold antihypertensives and monitor 3. Hyperphosphatemia-sevelemer 4. ESRD on HD- elevated BUN. no signs of uremic encephalopathy. Nephrology consulted. plan for HD tomorrow after AV fistula is corrected 5. AG acidemia- due to missed HD. on sodium bicarb 6. schizoaffective disorder with paranoia- cont seroquel 7. DVT ppx- will start hep sq Visit type - Emergency Visit Emergency Visit: Yes ED Registration Date: 07/26/17 Care time: The patient presented to the Emergency Department on the above date and was hospitalized for further evaluation of their emergent condition. - New Patient This patient is new to me today: Yes Date on this admission: 07/27/17 - Critical Care Critical Care patient: No - Discharge Referral Referred to [facility] Med P.C.: No
[2017-07-27] MEDS ORDERED: ASPIRIN COATED 81 MG TABLET.EC PO SCH (14:15)
[2017-07-27] MEDS: HEPARIN NA (PORCINE) 5,000 UNITS/ML 1ML VIAL SQ SCH ×2 (14:45→22:42)
[2017-07-27] MEDS: ACETAMINOPHEN 325 MG TABLET (FP) PO PRN (19:03)
--- NOTE | 2017-07-27 19:41 | PN ---
Progress Note (short form) - Note Progress Note: VAscular surgery Pt seen and examined. Left avg clotted. No need for HD today. Dr. denton to declot access felicia. Pt is npo past midnite. Amari Do DO
[2017-07-27] MEDS ORDERED: DOCUSATE SODIUM 100 MG CAPSULE (FP) PO SCH (22:00)
[2017-07-28] MEDS: ACETAMINOPHEN 325 MG TABLET (FP) PO PRN (02:20)
[2017-07-28] MEDS ORDERED: HEPARIN NA (PORCINE) 5,000 UNITS/ML 1ML VIAL IVPUSH ONE ×2 (06:00→14:15)
[2017-07-28] MEDS: HEPARIN NA (PORCINE) 5,000 UNITS/ML 1ML VIAL SQ SCH ×2 (06:35→21:55)
[2017-07-28] MEDS: GABAPENTIN 300 MG CAPSULE (FP) PO SCH ×3 (06:36→21:56)
[2017-07-28] MEDS: SEVELAMER CARBONATE 800 MG TAB (FP) PO SCH ×2 (08:04→18:00)
[2017-07-28 08:12] LABS: BASOPHIL 0.9 % (0-2.0); EOSINOPHIL 2.7 % (0-4.5); MCH 30.9 pg (25.7-33.7); MCHC 31.8 g/dl (32.0-35.9); MEAN CELL VOLUME 97.2 fl (80-96); MEAN PLT VOLUME 7.7 fl (7.5-11.1); NEUTROPHILS 72.6 % (42.8-82.8); PLATELET COUNT 275 K/MM3 (134-434); RDW 16.1 % (11.9-15.9); WHITE BLOOD COUNT 8.8 K/mm3 (4.0-10.0)
[2017-07-28 08:28] LABS: ANION GAP 18 (8-16); CALCIUM 8.1 mg/dL (8.5-10.1); CO2 20 mmol/L (21-32); GLUCOSE,RANDOM 69 mg/dL (74-106); MAGNESIUM 2.9 mg/dL (1.8-2.4)
[2017-07-28] MEDS ORDERED: LORazepam 2 MG/ML SDV VIAL IVPUSH ONE (08:32)
[2017-07-28 08:40] LABS: ALBUMIN 3.7 g/dl (3.4-5.0); ALK PHOS 106 U/L (45-117); BILIRUBIN,TOTAL 0.4 mg/dL (0.2-1.0); SGOT/AST 8 U/L (15-37); SGPT/ALT 19 U/L (12-78); TOT PROT 6.9 g/dl (6.4-8.2)
[2017-07-28 08:44] LABS: CREATININE 13.6 mg/dL (0.7-1.3)
[2017-07-28] MEDS ORDERED: MIDAZOLAM HCL 2 MG/2 ML SINGLE DOSE VIAL ONE ×2 (09:32)
[2017-07-28] MEDS ORDERED: PROPOFOL 20 ML ONE ×3 (09:36→10:37)
[2017-07-28] MEDS ORDERED: LIDOCAINE HCL 1%, 10 MG/ML (20ML VIAL) ONE (09:42)
[2017-07-28] MEDS ORDERED: HEPARIN NA (PORCINE) 5,000 UNITS/ML 1ML VIAL ONE (09:42)
[2017-07-28] MEDS ORDERED: QUEtiapine FUMARATE 100 MG TABLET (FP) PO SCH (10:00)
--- NOTE | 2017-07-28 10:39 | PN ---
Progress Note (short form) - Note Progress Note: Renal follow up for ESRD with clotted AVF Pt seen and examined in the hallway awake and alert pt walking the halls with his nurse no sob, pain, N/V NPO for declott today Vital Signs Temperature 98.9 F 07/28/17 06:00 Pulse Rate 72 07/28/17 08:22 Respiratory Rate 20 07/28/17 08:22 Blood Pressure 120/75 07/28/17 08:22 O2 Sat by Pulse Oximetry (%) 98 07/27/17 21:00 Intake & Output 07/25/17 07/26/17 07/27/17 07/28/17 23:59 23:59 23:59 23:59 Intake Total 1170 200 Output Total 200 Balance 970 200 Weight 58.967 kg 58.315 kg NAD No LE anders Clotted AVF CBC, BMP 07/28/17 06:20 07/28/17 06:20 Current Medications Acetaminophen (Tylenol -) 650 mg PO Q4H PRN PRN Reason: FEVER OR PAIN Last Admin: 07/28/17 02:20 Dose: 650 mg Aspirin (Ecotrin -) 81 mg PO DAILY COUNT INCLUDES THE [facility] Last Admin: 07/27/17 14:18 Dose: 81 mg Cinacalcet (Sensipar -) 30 mg PO DAILY COUNT INCLUDES THE [facility] Last Admin: 07/27/17 12:08 Dose: 30 mg Diazepam (Valium -) 10 mg PO DAILY COUNT INCLUDES THE [facility] Last Admin: 07/27/17 11:02 Dose: Not Given Docusate Sodium (Colace -) 200 mg PO HS COUNT INCLUDES THE [facility] Last Admin: 07/27/17 22:42 Dose: 200 mg Fluoxetine HCl (Prozac -) 10 mg PO DAILY COUNT INCLUDES THE [facility] Last Admin: 07/27/17 11:02 Dose: Not Given Fluticasone Propionate (Flonase -) 1 spray NS BID COUNT INCLUDES THE [facility] Last Admin: 07/27/17 22:42 Dose: 1 inh Gabapentin (Neurontin -) 300 mg PO TID COUNT INCLUDES THE [facility] Last Admin: 07/28/17 06:36 Dose: Not Given Heparin Sodium (Porcine) (Heparin -) 1,000 unit IVPUSH ONCE ONE Stop: 07/28/17 06:01 Heparin Sodium (Porcine) (Heparin -) 5,000 unit SQ TID COUNT INCLUDES THE [facility] Last Admin: 07/28/17 06:35 Dose: Not Given Quetiapine Fumarate (Seroquel -) 100 mg PO DAILY COUNT INCLUDES THE [facility] Sevelamer Carbonate (Renvela -) 1,600 mg PO BIDWM COUNT INCLUDES THE [facility] Last Admin: 07/28/17 08:04 Dose: Not Given Triamcinolone Acetonide (Aristocort 0.1% Ointment -) 1 applic TP BID COUNT INCLUDES THE [facility] Last Admin: 07/27/17 22:42 Dose: 1 applic 56 year old gentleman with PMhx of ESRD on HD (MWF at [facility]), HIV, Schizophrenia, Anxiety, Depression sent from HD unit with clotted AVG. #Clotted AVG Vascular surgery aware and will follow #ESRD on HD with missed dialysis yesterday for declotting by vascular Sx today followed by dialysis will plan for 4 hour tx given high bun and K Renal diet no need for kayexalate as the potassium will improve with HD #HIV continue anti-virals #Hypertension continue metoprolol, amlodipine #Metabolic acidosis secondary to renal failure can d.c sodium bicarbonate goal bicarb >22, should improve following dialysis #CKD related Anemia Hgb at goal Thank you Roscoe Becerra DO Problem List - Problems (1) ESRD (end stage renal disease) Code(s): N18.6 - END STAGE RENAL DISEASE (2) ESRD (end stage renal disease) on dialysis Code(s): N18.6 - END STAGE RENAL DISEASE; Z99.2 - DEPENDENCE ON RENAL DIALYSIS (3) Dialysis AV fistula malfunction Code(s): T82.590A - [facility] COMPL OF SURGICALLY CREATED ARTERIOVENOUS FISTULA, INIT (4) Clotted renal dialysis AV graft Code(s): T82.868A - THROMBOSIS DUE TO VASCULAR PROSTH DEV/GRFT, INIT
[2017-07-28] MEDS ORDERED: LIDOCAINE HCL 1%, 10 MG/ML (20ML VIAL) INF ONE (11:13)
--- NOTE | 2017-07-28 11:30 | OP ---
Operative Note - Note: Operative Date: 07/28/17 Pre-Operative Diagnosis: Thrombosed AV graft left arm Operation: Percutaneous suction thrombectomy, placement stents in graft and axillary vein. Venoplasty brachial artery anastomosis Findings: Thrombosed AV graft left arm Stent fracture in graft 90% axillary vein stenosis Implants: 8 x 80 Life start in graft. 9 x 40 LifeStar in axillary vein Post-Operative Diagnosis: Same as Pre-op Surgeon: Eddy Brooks Anesthesiologist/FRAME FIXER: Angel Jenkins Anesthesia: Fractional
[2017-07-28] MEDS ORDERED: SODIUM CHLORIDE 1,000 ML IV SCH (11:45)
[2017-07-28] MEDS ORDERED: ACETAMINOPHEN 325 MG TABLET (FP) PO PRN (11:59)
[2017-07-28 12:26] LABS: PHOSPHOROUS 11.7 mg/dL (2.5-4.9)
--- NOTE | 2017-07-28 16:50 | PN ---
Progress Note (short form) - Note Progress Note: asymptomatic. tolerating HD. denies CP, SOB< fever, chills, N/V/C/D. states there was no difficulty cannulizing AV fistula on Saturday and tolerated full HD session Current Medications Generic Name Dose Route Start Last Admin Trade Name Freq PRN Reason Stop Dose Admin Acetaminophen 650 mg 07/28/17 11:59 Tylenol - PO Q4H PRN FEVER OR PAIN Aspirin 81 mg 07/29/17 10:00 Ecotrin - PO DAILY YOSVANY Cinacalcet 30 mg 07/29/17 10:00 Sensipar - PO DAILY YOSVANY Diazepam 10 mg 07/29/17 10:00 Valium - PO DAILY YOSVANY Docusate Sodium 200 mg 07/28/17 22:00 Colace - PO HS YOSVANY Fluoxetine HCl 10 mg 07/29/17 10:00 Prozac - PO DAILY YOS[facility]ANY Fluticasone Propionate 1 spray 07/28/17 22:00 Flonase - NS BID YOSVANY Gabapentin 300 mg 07/28/17 14:00 Neurontin - PO TID YOSVANY Heparin Sodium (Porcine) 5,000 unit 07/28/17 14:00 Heparin - SQ TID YOSVANY Quetiapine Fumarate 100 mg 07/29/17 10:00 Seroquel - PO DAILY YOSVANY Sevelamer Carbonate 1,600 mg 07/28/17 17:30 Renvela - PO BIDWM YOSVANY Triamcinolone Acetonide 1 applic 07/28/17 22:00 Aristocort 0.1% Ointment - TP BID YOSVANY Last Vital Signs Temp Pulse Resp BP Pulse Ox 97.6 F 78 18 136/85 100 07/28/17 15:05 07/28/17 15:40 07/28/17 15:40 07/28/17 15:40 07/28/17 13:38 General NAD CV S1 S2 RRR +murmur Lungs CTA B/L no wheezing/rales/rhonchi Abdomen soft NT/ND no wheezig/rales/rhonchi Extremities LUE fistula with no palable thrill, no bruit CBCD WBC 8.8 K/mm3 (4.0-10.0) 07/28/17 06:20 RBC 3.75 M/mm3 (4.00-5.60) L 07/28/17 06:20 Hgb 11.6 GM/dL (11.7-16.9) L 07/28/17 06:20 Hct 36.5 % (35.4-49) 07/28/17 06:20 MCV 97.2 fl (80-96) H 07/28/17 06:20 MCHC 31.8 g/dl (32.0-35.9) L 07/28/17 06:20 RDW 16.1 % (11.9-15.9) H 07/28/17 06:20 Plt Count 275 K/MM3 (134-434) 07/28/17 06:20 MPV 7.7 fl (7.5-11.1) 07/28/17 06:20 CMP Sodium 130 mmol/L (136-145) L 07/28/17 06:20 Potassium 5.6 mmol/L (3.5-5.1) H 07/28/17 06:20 Chloride 92 mmol/L (98-107) L 07/28/17 06:20 Carbon Dioxide 20 mmol/L (21-32) L 07/28/17 06:20 Anion Gap 18 (8-16) H 07/28/17 06:20 BUN 132 mg/dL (7-18) H* 07/28/17 06:20 Creatinine 13.6 mg/dL (0.7-1.3) H* 07/28/17 06:20 Creat Clearance w eGFR 3.83 (>60) 07/28/17 06:20 Calcium 8.1 mg/dL (8.5-10.1) L 07/28/17 06:20 Total Bilirubin 0.4 mg/dL (0.2-1.0) D 07/28/17 06:20 AST 8 U/L (15-37) L 07/28/17 06:20 ALT 19 U/L (12-78) 07/28/17 06:20 Alkaline Phosphatase 106 U/L (45-117) 07/28/17 06:20 Total Protein 6.9 g/dl (6.4-8.2) 07/28/17 06:20 Albumin 3.7 g/dl (3.4-5.0) 07/28/17 06:20 A/P 56yo M with PMH ESRD on HD, HIV, anemia, schizoaffective disorder with paranoia presented to the ER with clotted AV fistula 1. Clotted AV fistula- s/p Percutaneous suction thrombectomy, placement stents in graft and axillary vein today. currently receiving HD. vascular surgery on board. 2. Hypotension- resolved. re-start toprol xl. hold norvasc 3. Hyperphosphatemia-sevelemer 4. ESRD on HD- currently receiving HD. tolerating well. can continue regular HD sessions. 5. AG acidemia- due to missed HD. received sodium bicarb yesterday. should correct with HD 6. HYperkalemia- will correct with HD 7. schizoaffective disorder with paranoia- cont seroquel 8. DVT ppx- hep sq 9. will be discharged tomorrow as will be completing HD too late tonight and requires transportation Visit type - Emergency Visit Emergency Visit: Yes ED Registration Date: 07/26/17 Care time: The patient presented to the Emergency Department on the above date and was hospitalized for further evaluation of their emergent condition. - New Patient This patient is new to me today: No - Critical Care Critical Care patient: No - Discharge Referral Referred to [facility] No
[2017-07-28] MEDS ORDERED: MAG HYDROX/AL HYDROX/SIMETH 30 ML UNIT-DOSE CUP PO ONE (17:12)
[2017-07-28] MEDS ORDERED: PT OWN MED DRAWER 7, Y5N ONE (18:39)
[2017-07-28] MEDS ORDERED: ONDANSETRON 4 MG/2 ML VIAL IVPB PRN (19:00)
[2017-07-28] MEDS ORDERED: BISMUTH SUBSALICYLATE 262 MG/15 ML BTL PO ONE (19:00)
[2017-07-28] MEDS: TRIAMCINOLONE ACET 0.1% OINT 15 GM TUBE TP SCH (21:56)
[2017-07-28] MEDS: FLUTICASONE PROP 0.05% 16 GM NASAL SPRAY NS SCH (21:57)
[2017-07-28] MEDS ORDERED: DOCUSATE SODIUM 100 MG CAPSULE (FP) PO SCH (22:00)
[2017-07-29] MEDS: GABAPENTIN 300 MG CAPSULE (FP) PO SCH ×2 (06:15→16:33)
[2017-07-29] MEDS: HEPARIN NA (PORCINE) 5,000 UNITS/ML 1ML VIAL SQ SCH ×2 (06:15→16:32)
[2017-07-29 08:23] LABS: MCH 31.5 pg (25.7-33.7); MCHC 32.5 g/dl (32.0-35.9); MEAN CELL VOLUME 96.7 fl (80-96); PLATELET COUNT 255 K/MM3 (134-434); RDW 16.2 % (11.9-15.9); WHITE BLOOD COUNT 8.7 K/mm3 (4.0-10.0)
[2017-07-29 08:35] LABS: ANION GAP 11 (8-16); CALCIUM 8.6 mg/dL (8.5-10.1); CO2 30 mmol/L (21-32); CREATININE 7.3 mg/dL (0.7-1.3); GLUCOSE,RANDOM 62 mg/dL (74-106)
--- NOTE | 2017-07-29 09:33 | PN ---
Progress Note (short form) - Note Progress Note: Pot op day#1.S/P Left arm AV graft suction thrombectomy under TIVA uneventful.Patient stable.No any anesthesia related problem.Patient DC from the anesthesia care.
[2017-07-29] MEDS ORDERED: FLUoxetine HCL 10 MG CAPSULE (FP) PO SCH (10:00)
[2017-07-29] MEDS ORDERED: QUEtiapine FUMARATE 50 MG TABLET PO SCH (10:00)
[2017-07-29] MEDS ORDERED: diazePAM 5 MG TABLET PO SCH (10:00)
[2017-07-29] MEDS ORDERED: CINACALCET HCL 30 MG TAB (FP) PO SCH (10:00)
[2017-07-29] MEDS ORDERED: METOPROLOL SUCCINATE 50 MG TAB.SR.24H (FP) PO SCH (10:00)
[2017-07-29] MEDS ORDERED: ASPIRIN COATED 81 MG TABLET.EC PO SCH (10:00)
[2017-07-29] MEDS ORDERED: ONDANSETRON 4 MG TABLET PO PRN (10:30)
--- NOTE | 2017-07-29 11:16 | PN ---
Progress Note (short form) - Note Progress Note: No complaints Graft functioned well yesterday. No arm swelling I will see in my office in 2 weeks.
[2017-07-29] MEDS: SEVELAMER CARBONATE 800 MG TAB (FP) PO SCH (11:19)
[2017-07-29] MEDS: FLUTICASONE PROP 0.05% 16 GM NASAL SPRAY NS SCH (11:22)
[2017-07-29] MEDS: TRIAMCINOLONE ACET 0.1% OINT 15 GM TUBE TP SCH (11:22)
--- NOTE | 2017-07-29 11:39 | EKG ---
Test Reason : Blood Pressure : / mmHG Vent. Rate : 075 BPM Atrial Rate : 075 BPM P-R Int : 170 ms QRS Dur : 088 ms QT Int : 380 ms P-R-T Axes : 067 052 048 degrees QTc Int : 424 ms NORMAL SINUS RHYTHM NORMAL ECG WHEN COMPARED WITH ECG OF 19-SEP-2016 22:27, NO SIGNIFICANT CHANGE WAS FOUND Confirmed by MONTANA MONTESINOS MD ([id number]) on 07/29/2017 11:38:41 AM Referred By: Confirmed By:MONTANA MONTESINOS MD
[2017-07-29] MEDS ORDERED: HEPARIN NA (PORCINE) 5,000 UNITS/ML 1ML VIAL IVPUSH ONE (12:15)
--- NOTE | 2017-07-29 12:39 | PN ---
Progress Note (short form) - Note Progress Note: Renal follow up for ESRD with clotted AVF Pt seen and examined in the hallway awake and alert feels some chills no fevers s/p dialysis yesterday Vital Signs Temperature 98.8 F 07/29/17 06:00 Pulse Rate 121 H 07/29/17 06:00 Respiratory Rate 18 07/29/17 06:00 Blood Pressure 108/42 07/29/17 06:00 O2 Sat by Pulse Oximetry (%) 100 07/28/17 21:00 Intake & Output 07/26/17 07/27/17 07/28/17 07/29/17 23:59 23:59 23:59 23:59 Intake Total 1170 950 400 Output Total 200 Balance 970 950 400 Weight 58.967 kg 58.315 kg NAD No LE anders Clotted AVF CBC, BMP 07/29/17 08:18 07/29/17 06:42 Current Medications Acetaminophen (Tylenol -) 650 mg PO Q4H PRN PRN Reason: FEVER OR PAIN Aspirin (Ecotrin -) 81 mg PO DAILY [facility] Last Admin: 07/29/17 11:20 Dose: 81 mg Cinacalcet (Sensipar -) 30 mg PO DAILY [facility] Last Admin: 07/29/17 11:21 Dose: 30 mg Diazepam (Valium -) 10 mg PO DAILY [facility] Last Admin: 07/29/17 11:22 Dose: 10 mg Docusate Sodium (Colace -) 200 mg PO HS [facility] Last Admin: 07/28/17 21:53 Dose: 200 mg Fluoxetine HCl (Prozac -) 10 mg PO DAILY [facility] Last Admin: 07/29/17 11:27 Dose: 10 mg Fluticasone Propionate (Flonase -) 1 spray NS BID [facility] Last Admin: 07/29/17 11:22 Dose: 1 spray Gabapentin (Neurontin -) 300 mg PO TID [facility] Last Admin: 07/29/17 06:15 Dose: 300 mg Heparin Sodium (Porcine) (Heparin -) 5,000 unit SQ TID [facility] Last Admin: 07/29/17 06:15 Dose: 5,000 unit Metoprolol Succinate (Toprol Xl -) 50 mg PO DAILY [facility] Last Admin: 07/29/17 11:20 Dose: 50 mg Ondansetron HCl (Zofran -) 8 mg PO Q8H PRN PRN Reason: NAUSEA Last Admin: 07/29/17 11:17 Dose: 8 mg Quetiapine Fumarate (Seroquel -) 100 mg PO DAILY [facility] Last Admin: 07/29/17 11:20 Dose: 100 mg Sevelamer Carbonate (Renvela -) 1,600 mg PO BIDWM [facility] Last Admin: 07/29/17 11:19 Dose: 1,600 mg Triamcinolone Acetonide (Aristocort 0.1% Ointment -) 1 applic TP BID [facility] Last Admin: 07/29/17 11:22 Dose: 1 appful 56 year old gentleman with PMhx of ESRD on HD (MWF at [facility]), HIV, Schizophrenia, Anxiety, Depression sent from HD unit with clotted AVG. #Clotted AVG s/p vascular surgical intervention #ESRD on HD with missed dialysis yesterday s/p dialysis yesterday will do additional 2hr tx today then pt can be discharged to follow up as outpatient #HIV continue anti-virals #Hypertension continue metoprolol, amlodipine #CKD related Anemia Hgb at goal Thank you Roscoe Becerra DO Problem List - Problems (1) ESRD (end stage renal disease) Code(s): N18.6 - END STAGE RENAL DISEASE (2) ESRD (end stage renal disease) on dialysis Code(s): N18.6 - END STAGE RENAL DISEASE; Z99.2 - DEPENDENCE ON RENAL DIALYSIS (3) Dialysis AV fistula malfunction Code(s): T82.590A - MECH COMPL OF SURGICALLY CREATED ARTERIOVENOUS FISTULA, INIT (4) Clotted renal dialysis AV graft Code(s): T82.868A - THROMBOSIS DUE TO VASCULAR PROSTH DEV/GRFT, INIT
--- NOTE | 2017-07-29 13:17 | PN ---
Teaching Attending Note Name of Resident: Tye Richard ATTENDING PHYSICIAN STATEMENT I saw and evaluated the patient. I reviewed the resident's note and discussed the case with the resident. I agree with the resident's findings and plan as documented. SUBJECTIVE:asymptomatic. denies CP, SOB, fever, chills, pruritis OBJECTIVE: Last Vital Signs Temp Pulse Resp BP Pulse Ox 98.8 F 121 H 18 108/42 100 07/29/17 06:00 07/29/17 06:00 07/29/17 06:00 07/29/17 06:00 07/28/17 21:00 General NAD ASSESSMENT AND PLAN: 56yo M with PMH ESRD on HD, HIV, anemia, schizoaffective disorder with paranoia presented to the ER with clotted AV fistula 1. Clotted AV fistula- s/p Percutaneous suction thrombectomy, placement stents in graft and axillary vein today. currently receiving HD. vascular surgery on board. 2. Hypotension- resolved. on toprol xl. hold norvasc 3. Hyperphosphatemia-sevelemer 4. ESRD on HD- received HD yesterday. tolerated well. will get abridged session today. then resume normal schedule. 5. AG acidemia- due to missed HD. resolved with HD 6. HYperkalemia- will correct with HD 7. schizoaffective disorder with paranoia- cont seroquel 8. DVT ppx- hep sq 9. D/c home after HD
--- NOTE | 2017-07-29 13:46 | OP ---
DATE OF OPERATION: 07/28/2017 SURGEON: Eddy Brooks MD PROCEDURE: Percutaneous suction thrombectomy left arm arteriovenous graft. Placement of intravascular stent of axillary vein and mid graft, venoplasty of the brachial artery anastomosis. PREOPERATIVE DIAGNOSIS: Thrombosed arteriovenous graft with end-stage renal disease. POSTOPERATIVE DIAGNOSIS: Thrombosis arteriovenous graft with end-stage renal disease with fractured stent and graft. ANESTHESIA: Fractional. ANESTHESIOLOGIST: Angel Jenkins MD OPERATIVE FINDINGS: The left brachioaxillary AV graft was thrombosed. There was a preexisting stent in the mid portion of the graft with several areas of stent fractures. After thrombectomy, there was identified a 99% stenosis at the axillary vein anastomosis and a moderate stenosis of the distal graft and brachial artery anastomosis. OPERATIVE PROCEDURE: Following routine patient identification with side and site verification, intravenous sedation was established. The left arm was prepped with ChloraPrep. Then, 1% lidocaine was infiltrated to the distal end of the graft and the graft cannulated with a micropuncture needle. A micropuncture wire was advanced proximally into the graft under fluoroscopic guidance and the needle was exchanged for a 5-Argentine catheter. A tipped wire was then exchanged through the catheter and a 7-Argentine sheath placed. The patient was systemically heparinized. An angle-tipped wire and catheter were then advanced proximally through the graft to the level of the venous anastomosis. It was not possible to advance the wire across this area and contrast was injected to visualize the severe stenosis. Under road-mapping technique the wire was advanced proximally into the proximal axillary vein. The catheter was advanced over the wire. Contrast was injected through the catheter to confirm patency of the axillary and subclavian veins. The wire was replaced. The AngioJet with AVX catheter was then used to perform suction thrombectomy from the sheath to the axillary vein. Repeat imaging revealed reopening of the lumen with the severe stenosis as noted above. The axillary vein anastomosis was then balloon dilated with an 8-mm balloon. To fully dilate the area, an 8-mm Conquest balloon was used. The old stent was also balloon dilated with the 8-mm balloon. An 8-mm x 80-mm Life stent was placed within the old stent in the graft due to multiple stent fractures and deployed without difficulty. It was pulse dilated with the 8-mm balloon. The axillary vein anastomosis was then centered with a 9-mm x 40-mm LifeStar and pulse dilated with the 8-mm balloon. Completion imaging revealed patent graft and outflow with no residual stenosis. During the procedure a number 4 catheter was also used to retrieve clot through the sheath. The sheath was removed and the opening closed with a mattress suture of 3-0 Nylon. Lidocaine was then infiltrated at the proximal end of the graft, proximal to the stent, and the graft cannulated with a micropuncture needle and the 7-Argentine sheath placed. The wire and catheter were then advanced distally through the arterial anastomosis into the brachial artery and a brachial angiogram was obtained, which showed patent brachial artery and occlusion of the distal end of the graft. The wire was replaced and the catheter was removed. The AngioJet was used on the distal end of the graft. Repeat imaging revealed some residual narrowing in the distal end of the graft and a 4-mm x 40-mm balloon was used to dilate this area with good result. Completion imaging revealed brisk flow through the graft with no residual thrombus identified. The 2nd sheath was removed and a mattress suture of nylon was placed. Sterile dressings were applied. The patient was taken to the recovery room in stable condition. Hunter [id number]
[2017-07-29 15:14] VITALS: TEMP 97.9
--- NOTE | 2017-07-29 17:13 | DS ---
Physical Exam: SUBJECTIVE: Patient seen and examined at bedside. Patient is s/p short dialysis today. Patient states that he had some nausea and vomited once during dialysis. He states that currently his nose is congested and he feels a little itchy. Denies current chest pain, SOB, nausea, vomiting, diarrhea, abdominal pain. OBJECTIVE: Vital Signs Period Temp Pulse Resp BP Sys/Donovan Pulse Ox Last 24 Hr 97.8 F-98.8 F 79-121 18-22 81-153/42-98 100 PHYSICAL EXAM GENERAL: Awake, alert, and fully oriented, in no acute distress. HEAD: Normal with no signs of trauma. EYES: Pupils equal, round and reactive to light, extraocular movements intact, sclera anicteric, conjunctiva clear. Lid lag on the R. Possible Exophthalmos. EARS, NOSE, THROAT: Ears normal, nares patent, oropharynx clear without exudates. Moist mucous membranes. NECK: Normal range of motion, supple without lymphadenopathy, JVD, or masses. LUNGS: Breath sounds equal, clear to auscultation bilaterally. No wheezes, and no crackles. No accessory muscle use. HEART: Regular rate and rhythm, normal S1 and S2 without murmur, rub or gallop. ABDOMEN: Soft, nontender, not distended, normoactive bowel sounds, no guarding, no rebound, no masses. No hepatomegaly or splenomegaly. MUSCULOSKELETAL: Normal range of motion at all joints. No bony deformities or tenderness. No CVA tenderness. UPPER EXTREMITIES: 2+ pulses, warm, well-perfused. No cyanosis. No clubbing. No peripheral edema. Scar from L arm AV graft visible. Flow auscultated. LOWER EXTREMITIES: 2+ pulses, warm, well-perfused. No calf tenderness. No peripheral edema. NEUROLOGICAL: Cranial nerves II-XII intact. Normal speech. Normal gait. PSYCHIATRIC: Cooperative. Good eye contact. Appropriate mood and affect. SKIN: Warm, dry, normal turgor, no rashes or lesions noted, normal capillary refill. LABS Laboratory Results - last 24 hr 07/29/17 07/29/17 06:42 08:18 WBC 8.7 RBC 3.53 L Hgb 11.1 L Hct 34.1 L MCV 96.7 H MCH 31.5 MCHC 32.5 RDW 16.2 H Plt Count 255 MPV 8.0 Sodium 140 Potassium 5.5 H Chloride 99 Carbon Dioxide 30 D Anion Gap 11 BUN 58 H D Creatinine 7.3 H D Random Glucose 62 L Calcium 8.6 HOSPITAL COURSE: Date of Admission:07/26/17 Patient is a 56 year old male with a past medical history of ESRD (on HD Saturday , Saturday, Saturday), HIV, anemia, GERD, paranoid schizophrenia, depression and anxiety who arrived to the hospital on 07/26 after a failed dialysis attempt where they found his left arteriovenous graft had clotted. Patient had received successful dialysis just two days prior. Patient was seen by Dr. Brooks who performed a percutaneous suction thrombectomy with stent placement to relieve the stenotic AV graft and reinstitute flow. The operation was successful, and the patient received hemodialysis on Saturday, 07/28. During the patient's admission, he was found to be hypotensive, and his hypertensive medications were held. On discharge, patient's amlodipine was held so as to not exacerbate his low blood pressure. Patient received a short course of hemodialysis on and was discharged home with instructions to follow up with his mosaic layer , his vascular surgeon, and his primary care physician. Date of Discharge: 07/29/17 Minutes to complete discharge: 30 Discharge Summary Reason For Visit: MALFUNCTION OF ARTERIOVENOUS DIALYSIS FI Current Active Problems Dialysis AV fistula malfunction (Acute) ESRD (end stage renal disease) (Acute) ESRD (end stage renal disease) on dialysis (Acute) Condition: Stable - Instructions Diet, Activity, Other Instructions: You were admitted to the hospital for treatment of a clotted AV graft. Medical Recommendations: 1. Continue receiving hemodialysis every Saturday, Saturday, Saturday. 2. Do NOT take Amlodipine anymore for high blood pressure 3. Continue to take metoprolol for high blood pressure 4. Please follow up with your mosaic layer Dr. Becerra within 2 weeks of discharge. 5. Please follow up with your vascular surgeon, Dr. Brooks within 2 weeks of discharge. 6. Please follow up with your primary care physician within 1 week of discharge. If you experience fevers, chills, nausea, vomiting, chest pain, shortness of breath, please return to the emergency room immediately. Referrals: Roscoe Becerra MD [Staff Physician] - Eddy Brooks MD [Staff Physician] - 2 Weeks Disposition: LONGTERM FACILITY - Home Medications Comprehensive Discharge Medication List: Ambulatory Orders Ascorbic Acid [Vitamin C] 250 mg PO DAILY 09/30/15 Calcitriol 0.5 mcg PO DAILY 09/30/15 Cinacalcet HCl [Sensipar] 30 mg PO DAILY 09/30/15 Diazepam 10 mg PO DAILY 09/30/15 Docusate Sodium [Colace -] 200 mg PO HS 09/30/15 Fluoxetine HCl 10 mg PO DAILY 09/30/15 Gabapentin 300 mg PO TID 09/30/15 Iron Polysaccharide Complex [Ferrex 150] 150 mg PO DAILY 09/30/15 Metoprolol Succinate [Toprol XL -] 50 mg PO DAILY 09/30/15 Nut.tx,Impaired Renal Fxn,Whey [Renalcal] 800 ml PO TID 09/30/15 Sevelamer Carbonate [Renvela -] 1,600 mg PO BID 09/30/15 Aspirin [ASA -] 81 mg PO DAILY #30 tab.chew 10/02/15 Sodium Polystyrene Sulfonate [Kayexalate -] 30 gm PO DAILY #10 bottle 10/02/15 Fluticasone Prop 0.05% Nasal [Flonase -] 1 spray NS BID #1 bottle 07/29/17 This patient is new to me today: No Emergency Visit: No Critical Care patient: No - Discharge Referral Referred to [facility] No
[2017-07-29 18:18] VITALS: BP 100/59; PULSE 82
== END 2017-07-29 18:17 | DRG 252 ==
LOC: JER 18:37 → JERBED 22:47 → UNDOADMIN 23:45 → J5S 07-27 01:06
PROVIDERS: ADMIT Internal Medicine; ATTEND Internal Medicine
PROC: 03783ZZ Dilation of Left Brachial Artery, Percutaneous Approach (ICD-10-PCS; 2017-07-28)
PROC: 05H Upper Veins, Insertion (ICD-10-PCS; 2017-07-28)
PROC: 5A1D70Z Performance of Urinary Filtration, Intermittent, Less than 6 Hours Per Day (ICD-10-PCS; 2017-07-28)
PROC: 05C83ZZ Extirpation of Matter from Left Axillary Vein, Percutaneous Approach (ICD-10-PCS; principal; 2017-07-28 09:00)
DX: T82.868A Thrombosis due to vascular prosthetic devices, implants and grafts, initial encounter (principal); N18.6 End stage renal disease; F20.0 Paranoid schizophrenia; E87.2 Acidosis; T82.510A Breakdown (mechanical) of surgically created arteriovenous fistula, initial encounter; T82.590A Other mechanical complication of surgically created arteriovenous fistula, initial encounter; D64.9 Anemia, unspecified; F32.9 Major depressive disorder, single episode, unspecified; F41.9 Anxiety disorder, unspecified; K21.9 Gastro-esophageal reflux disease without esophagitis; E78.5 Hyperlipidemia, unspecified; Z88.0 Allergy status to penicillin; Z91.013 Allergy to seafood; Z66 Do not resuscitate; Z21 Asymptomatic human immunodeficiency virus [HIV] infection status; D63.1 Anemia in chronic kidney disease; E83.39 Other disorders of phosphorus metabolism; Y83.8 Other surgical procedures as the cause of abnormal reaction of the patient, or of later complication, without mention of misadventure at the time of the procedure; I95.9 Hypotension, unspecified; E87.5 Hyperkalemia; Z99.2 Dependence on renal dialysis
CPT/HCPCS: 36415; 71010-TC; 76000-TC; 80048; 80053; 83735; 84100; 85025; 85027; 85610; 85730; 86704; 86706; 86708; 86803; 86850; 86900; 86901; 87340; 93005; 93010; 93971; 94760; 99283-25; J1644